=== PATIENT | female | born 1960 | race Caucasian/White ===

== ENCOUNTER 2020-02-27 09:33 | Outpatient (CLI) | payer OTHER, SELFPAY ==
--- NOTE | ~2020-02-27 | CT_ITS ---
EXAMINATION: CT abdomen pelvis wo con DATE: 02/27/2020 10:19 INDICATION: Right ureteral stone. TECHNIQUE: Computed tomography (CT) of the abdomen and pelvis was performed without intravenous contr ast. Automated exposure control and iterative reconstruction technique were employed. The dose-length product was 199.48 mGy-cm. COMPARISON: CT abdomen and pelvis 10/23/2019 FINDINGS: The visualized portions of the lung bases demonstrate mild atelectasis. A calcified right l tara nodule and calcified right hilar and mediastinal lymph nodes are consistent with old granulomatou s disease. No pleural effusion. The heart size is normal. No pericardial effusion. Calcification in t he liver is consistent with old granulomatous disease. There are changes of cholecystectomy. The sple en, pancreas, adrenal glands, and right kidney are normal. There is a 3 mm stone in left kidney. Ther e is diverticulosis of the colon without evidence of diverticulitis. There are no dilated loops of rupert wel. The appendix is normal. There are no pathologically enlarged lymph nodes. There is no free intra peritoneal fluid. There is severe lower lumbar spondylosis. IMPRESSION: 1. 3 mm nonobstructing left kidney stone. Reviewed, dictated and finalized at location A.
--- NOTE | ~2020-02-27 | XR_ITS ---
EXAMINATION: XR abdomen/kub 1V DATE: 02/27/2020 09:59 INDICATION: Right ureteral stone. TECHNIQUE: A supine view of the abdomen on 2 radiographs was obtained. COMPARISON: CT abdomen and pelvis 02/27/2020 FINDINGS: There are no dilated loops of bowel. There is a 3 mm stone in left kidney. There are phlebo liths in the pelvis. Surgical clips in the right upper quadrant are likely from cholecystectomy. IMPRESSION: 1. 3 mm stone in left kidney. Reviewed, dictated and finalized at location A.
== END 2020-02-27 09:34 | disposition home or self-care (01) ==
PROVIDERS: PCP Physician Assistant; Visit Provider Urology
DX: N20.1 Calculus of ureter (principal); N20.0 Calculus of kidney
CPT/HCPCS: 74018; 74176

== ENCOUNTER → 2020-12-05 13:18 | Outpatient (CLI) | payer OTHER, SELFPAY ==
--- NOTE | ~2020-12-05 | XR_ITS ---
XR abdomen/kub 1V DATE: 12/05/2020 13:42 INDICATION: Left sided kidney stone TECHNIQUE: AP projection, 2 views COMPARISON: 02/27/[address] abdomen pelvis FINDINGS: No apparent urinary tract calcification is noted. The psoas shadows are intact. No visceromegaly is detected. Surgical clips overlie the right upper quadrant, due to cholecystectomy. There is a moderately prominent amount of fecal material in the colon but no evidence of bowel obstru ction. The lung bases are clear. Normal heart size. Mild levoscoliosis of the lumbar spine and dextroscoliosis of the thoracic spine. IMPRESSION: No radiographic evidence of urinary tract calcification. Noncontrast CT abdomen pelvis examination would be more sensitive for detection of urinary tract calc ulus Reviewed, dictated and finalized at Location A. Reviewed, dictated and finalized at location A. GRAPH OPERATOR IMPRESSION: No radiographic evidence of urinary tract calcification. Noncontrast CT abdomen pelvis examination would be more sensitive for detection of urinary tract calculus
== END ==
PROVIDERS: PCP Physician Assistant; Visit Provider Urology
DX: N20.0 Calculus of kidney (principal)
CPT/HCPCS: 74018

== ENCOUNTER → 2021-07-28 08:53 | Outpatient (CLI) | payer OTHER, SELFPAY ==
--- NOTE | ~2021-07-28 | XR_ITS ---
EXAMINATION: XR abdomen/kub 1V INDICATION: History of kidney stones TECHNIQUE: Supine views of the abdomen were obtained on 2 radiographs. COMPARISON: 12/05/2020 FINDINGS: No definite urolithiasis is identified. Cholecystectomy clips are noted in the right upper quadrant. The bowel gas pattern is normal. Calcified granulomas noted right lower lobe. Lumbar levocu rvature is noted. IMPRESSION: 1. No urolithiasis identified. Reviewed, dictated and finalized at location A.
== END ==
PROVIDERS: PCP Physician Assistant; Visit Provider Nurse Practitioner Family
DX: Z87.442 Personal history of urinary calculi (principal)
CPT/HCPCS: 74018

== ENCOUNTER → 2021-08-26 13:24 | Outpatient (CLI) | payer OTHER, SELFPAY ==
--- NOTE | ~2021-08-26 | XR_ITS ---
EXAMINATION: XR abdomen/kub 1V INDICATION: History of kidney stones TECHNIQUE: Supine views of the abdomen were obtained on 2 radiographs. COMPARISON: 07/28/2021; CT, 02/27/2020 FINDINGS: No definite urolithiasis is identified. A calcification projecting in the right upper quadr ant is demonstrated to be within the liver on the comparison CT. The bowel gas pattern is normal. The re is levocurvature of the lumbar spine. There are cholecystectomy clips of the right upper quadrant. IMPRESSION: 1. No urolithiasis identified. Reviewed, dictated and finalized at location A.
== END ==
PROVIDERS: Visit Provider Nurse Practitioner Family
DX: Z87.442 Personal history of urinary calculi (principal)
CPT/HCPCS: 74018

== ENCOUNTER → 2022-03-19 13:19 | Outpatient (CLI) | payer OTHER, SELFPAY ==
--- NOTE | ~2022-03-19 | MR_ITS ---
EXAMINATION: MR hand LT wo con DATE: 03/19/2022 14:17 INDICATION: Rheumatoid arthritis presenting with generalized left thumb and index finger pain TECHNIQUE: Magnetic resonance imaging (MRI) of the left hand was performed without intravenous contra st to include the metacarpals and digits. Sequences included axial, sagittal and coronal T1-weighted FSE and T2-weighted FS FSE and additional smaller field of view images centered and aligned along the axis of the thumb with axial, sagittal and coronal T1-weighted FSE, axial and sagittal T2-weighted F S FSE and coronal PD-weighted FS FSE. COMPARISON: Left hand radiographs dated 10/16/2021 FINDINGS: Bone alignment is normal. There is normal bone marrow signal throughout with no reactive edema, fract ure or pathologic marrow replacing process. Joint spaces are normal with no erosions. No joint effusi ons, tenosynovitis or other abnormal fluid collections. The flexor and extensor tendons of the hand a re normal. The collateral ligament complexes at the metacarpophalangeal and interphalangeal joints ar e normal. Intrinsic musculature of the hand demonstrates normal bulk and signal. Although assessment is more limited than on MRI of the wrist, the scapholunate and lunotriquetral ligaments as well as th e triangular fibrocartilage complex appear normal. IMPRESSION: 1. Normal MRI of the left hand. No etiology identified for reported pain at the left thumb and index finger. Reviewed, dictated and finalized at location A.
== END ==
PROVIDERS: PCP Physician Assistant; Visit Provider Nurse Practitioner Family
DX: M79.642 Pain in left hand (principal)
CPT/HCPCS: 73218

== ENCOUNTER → 2022-05-27 13:13 | Outpatient (CLI) | payer OTHER, SELFPAY ==
--- NOTE | ~2022-05-27 | XR_ITS ---
XR ankle LT min 3V 05/27/2022 13:37 INDICATION: Left ankle pain PROCEDURE: 4 views left ankle COMPARISON: 05/16/2018 FINDINGS: Fracture, dislocation or subluxation is not identified. Ankle mortise intact. Talar dome is unremarkable. The soft tissues appear within normal limits. No foreign bodies are identified. IMPRESSION: 1: NO ACUTE BONE OR JOINT ABNORMALITY IDENTIFIED. Reviewed, dictated and finalized at location A.
== END ==
PROVIDERS: PCP Physician Assistant; Visit Provider Family Medicine
DX: M25.572 Pain in left ankle and joints of left foot (principal)
CPT/HCPCS: 73610

== ENCOUNTER 2022-06-08 10:26 | Outpatient (CLI) | payer OTHER, SELFPAY ==
--- NOTE | 2022-06-08 11:30 | NEURO_ITS ---
Impression: # Complains of left hand numbness. # Mild left Carpal Tunnel Syndrome. # No ulnar neuropathy. # Normal needle/EMG exam. Nerve Conduction Studies Anti Sensory Summary Table Stim Site NR Peak (ms) P-T Amp (?V) Site1 Site2 Delta-P (ms) Dist (cm) Jhony (m/s) Left Median Anti Sensory (2-3nd Digit) Wrist 3.2 39.9 Wrist 2-3nd Digit 3.2 14.0 44 Wrist 3.2 81.3 Wrist 2-3nd Digit 3.2 14.0 44 Left Radial Anti Sensory (Base 1st Digit) Wrist 1.8 45.5 Wrist Base 1st Digit 1.8 0.0 Left Ulnar Anti Sensory (5th Digit) Wrist 2.2 97.1 Wrist 5th Digit 2.2 14.0 64 Motor Summary Table Stim Site NR Onset (ms) O-P Amp (mV) Site1 Site2 Delta-0 (ms) Dist (cm) Jhony (m/s) Left Median Motor (Abd Poll Brev) Wrist 4.1 1.7 Elbow Wrist 4.5 26.0 58 Elbow 8.6 2.0 Left Ulnar Motor (Abd Dig Minimi) Wrist 2.7 5.7 A Elbow Wrist 4.6 26.0 57 A Elbow 7.3 3.9 F Wave Studies NR F-Lat (ms) L-R F-Lat (ms) Left Median (Mrkrs) (Abd Poll Brev) 26.12 Left Ulnar (Mrkrs) (Abd Dig Min) 25.64 EMG Side Muscle Nerve Root Ins Act Fibs Amp Dur Recrt Comment Left 1stDorInt Ulnar C8-T1 Nml Nml Nml Nml Nml Left Ext Indicis Radial (Post Int) C7-8 Nml Nml Nml Nml Nml Left Ext Digitorum Radial (Post Int) C7-8 Nml Nml Nml Nml Nml Left BrachioRad Radial C5-6 Nml Nml Nml Nml Nml Left PronatorTeres Median C6-7 Nml Nml Nml Nml Nml Left Abd Poll Brev Median C8-T1 Nml Nml Nml Nml Nml Left ABD Dig Min Ulnar C8-T1 Nml Nml Nml Nml Nml MTDD
== END 2022-06-08 10:27 | disposition home or self-care (01) ==
PROVIDERS: PCP Physician Assistant; Visit Provider Family Medicine
DX: G56.02 Carpal tunnel syndrome, left upper limb (principal)
CPT/HCPCS: 95886; 95909

== ENCOUNTER → 2022-06-14 13:28 | Outpatient (CLI) | payer OTHER, SELFPAY ==
--- NOTE | ~2022-06-14 | XR_ITS ---
XR abdomen/kub 1V 06/14/2022 13:51 Indication: Personal history of urinary stones: Procedure: KUB Comparison: Comparison to multiple prior studies sequentially, with oldest reviewed study dated 02/26. Findings: There is a right renal stone. Bowel gas pattern nonobstructive. There is levoscoliosis of t he lumbar spine. There are cholecystectomy clips. Impression: 1: Right nephrolithiasis. Reviewed, dictated and finalized at location B. Impression: 1: Right nephrolithiasis.
== END ==
PROVIDERS: PCP Family Medicine; Visit Provider Nurse Practitioner Family
DX: N20.0 Calculus of kidney (principal)
CPT/HCPCS: 74018

== ENCOUNTER → 2022-07-06 13:13 | Outpatient (CLI) | payer OTHER, SELFPAY ==
--- NOTE | ~2022-07-06 | CT_ITS ---
EXAMINATION: CT abdomen pelvis wo con DATE: 07/06/2022 13:26 INDICATION: Right flank pain. Bilateral nephrolithiasis. TECHNIQUE: Computed tomography (CT) of the abdomen and pelvis was performed without intravenous contr ast. Automated exposure control and iterative reconstruction technique were employed. The dose-length product was 326.44 mGy-cm. COMPARISON: None FINDINGS: Minimal bibasilar atelectasis. Calcified right lower lobe nodule along with calcified right hilar lym ph nodes and calcified nodules in the right hepatic lobe, all consistent with old granulomatous disea se. Heart size is normal. No pericardial effusion. Cholecystectomy clips at the gallbladder fossa. Li abner, spleen, pancreas and bilateral adrenal glands are normal. A couple 1-2 mm stones at the upper po le of the right kidney and 1 mm stone at the lower pole of the left kidney. No ureteral stones or hyd ronephrosis. Decompressed bladder is normal. The uterus is not identified and has likely been surgica lly resected. Bowels including the appendix are normal. No free intraperitoneal gas or fluid. No path ologically enlarged abdominal or pelvic lymphadenopathy. Mild lumbar levoscoliosis with severe spondy losis at L4-5 and L5-S1. Bone island at the left sacral ala. IMPRESSION: 1. Bilateral nonobstructing nephrolithiasis. No ureteral stones or hydronephrosis. Reviewed, dictated and finalized at location A. IMPRESSION: 1. Bilateral nonobstructing nephrolithiasis. No ureteral stones or hydronephros is.
== END ==
PROVIDERS: PCP Physician Assistant; Visit Provider Nurse Practitioner Family
DX: N20.0 Calculus of kidney (principal)
CPT/HCPCS: 74176

== ENCOUNTER 2022-08-18 01:29 | Day surgery (SDC) | payer OTHER, SELFPAY ==
[2022-08-11 14:38] VITALS: BMI 24.4
--- NOTE | 2022-08-11 14:54 | PC.NURSE ---
Report to the Outpatient Waiting Room, entrance under the green pavilion located off [facility], at time 0900 on date 08/18/22. OR Time: 1000. Time changes happen often and if your time is changed the preop area will call you the afternoon before. - You and your visitor will be asked to self-screen and do not enter if you have any COVID symptoms. - We encourage only one visitor and NO visitors under age 16 are allowed at this time. Your visitor will receive communication by the phone number that is given day of service. - The patient visitor is requested to social distance or may leave the building when not with patient due to restrictions. - A mask is required within the hospital. Patients may have LIGHT BREAKFAST Take the following medications with a SIP of water the morning of surgery: PRESCRIBED Medications to discontinue per physician: N/A Date to take last dose: N/A Please no make-up, nail [place], hairspray, perfume, deodorant, or body powder the day of surgery. No jewelry (including any body piercings) or valuables the day of surgery, leave them at home. Please take a shower or bath the night before, or the morning of, surgery with an antibacterial soap. Wear comfortable, loose fitting clothing. - Jewelry must be removed prior to entering the operating room. Rings and piercings that are not removed may be cut off. - The hospital will not accept responsibility for valuables. - Please leave all valuables, including medications, at home the day of surgery. YOU MAY DRIVE YOURSELF HOME AFTER SURGERY. Follow any additional instructions given to you from your surgeon. If you or anyone in your household have experienced Covid symptoms in the past week, please notify your surgeon or the nurse liaison at the phone number below for possible testing. Telephone instructions given to PT - ALEX HOOVER and asked if any additional questions and then verbalized understanding. Patient advised to call surgeon office or pre surgery nurse liaison [phone] if any additional questions.
--- NOTE | 2022-08-18 07:10 | WPDHPUPDATE1 ---
History and Physical Update Update Date/Time: 08/18/22 07:10 History and Physical has been reviewed, including an updated exam of the patient. There are NO changes in the patient's condition. Risks, benefits, and alternatives have been discussed and questions answered. Patient agrees to proceed with procedure.
[2022-08-18 08:40] VITALS: BP 129/64; PULSE 85; RESP 16; TEMP 36.4; O2SAT 99
[2022-08-18] MEDS: BACITRACIN OINTMENT 15 GM TUBE 1 APPLIC TOPICAL (09:37)
[2022-08-18 09:44] VITALS: BP 122/83; PULSE 84; RESP 16; O2SAT 99
[2022-08-18 09:54] VITALS: BP 122/76; PULSE 85; RESP 16; O2SAT 98
[2022-08-18 10:04] VITALS: BP 118/59; PULSE 82; RESP 16; O2SAT 99
--- NOTE | 2022-08-18 10:31 | W.PM.PROC2 ---
Procedure Note - Detailed Date of Procedure 08/18/22 Pre-op Diagnosis left carpal tunnel syndrome Post-op Diagnosis Same Procedure Performed Left open carpal tunnel release Surgeon Lemuel Juan MD Anesthesia Local Description of Procedure The face left palm for the carpal tunnel release marked on her in the holding area. She was then taken to the operating room she was placed supine on the operating table. The extremity was prepped and draped in usual fashion on left. A time-out was held confirmed. The site was carefully examined again and marked for the actual incision. The site was infiltrated with 2 % lidocaine with epinephrine. Time was allowed for hemostatic effect. No tourniquet was utilized. The incision was made as marked and dissection was carried through the palmar fascia. The transverse the retinaculum was identified incised with a 15 blade. Several bleeding points were coagulated as we proceeded with setting of 15. The ligament was divided distally and then proximally to completely release it. The was no unusual anatomy noted. The skin was closed with interrupted 5 0 nylon sutures and small bandage was applied. She is discharged from the operating room in stable condition. Estimated Blood Loss 2 Tourniquet Time 0 Drains No Packing No Pathology None sent Complications No immediate complications Condition Stable Disposition Same day
== END 2022-08-18 10:36 | disposition home or self-care (01) ==
PROVIDERS: PCP Physician Assistant; Visit Provider Plastic Surgery
PROC: (CPT 64721; principal; 2022-08-18 09:30)
DX: G56.02 Carpal tunnel syndrome, left upper limb (principal)
CPT/HCPCS: 64721; A9270

== ENCOUNTER 2022-10-01 13:22 | Outpatient (CLI) | payer OTHER, SELFPAY ==
--- NOTE | ~2022-10-01 | XR_ITS ---
XR hand RT min 3V DATE: 10/01/2022 13:33 INDICATION: Osteoarthritis TECHNIQUE: 3 views COMPARISON: None FINDINGS: Very small probable degenerative ossicles adjacent to the interphalangeal joint of the firs t digit and distal interphalangeal joints of the third and fourth digits. No fracture or dislocation, periosteal reaction or bone destruction, erosive change or chondrocalcino sis. IMPRESSION: Very small probable degenerative ossicles at the distal interphalangeal joints of first t hrough fourth digits Reviewed, dictated and finalized at location B. OMER ENERGY SPECIALIST IMPRESSION: Very small probable degenerative ossicles at the distal interphalan geal joints of first through fourth digits
--- NOTE | ~2022-10-01 | XR_ITS ---
XR hand LT min 3V DATE: 10/01/2022 13:33 INDICATION: Osteoarthritis TECHNIQUE: 3 views COMPARISON: None FINDINGS: Small likely degenerative ossicle at the medial aspect of this large phalangeal joint of th e third digit. No fracture or dislocation, periosteal reaction or bone destruction, erosive change or chondrocalcino sis. IMPRESSION: Small probable degenerative ossicle at the medial base of the distal interphalangeal join t of the third digit; otherwise unremarkable examination Reviewed, dictated and finalized at location B. ETING DATABASE COORDINATOR IMPRESSION: Small probable degenerative ossicle at the medial base of the dista l interphalangeal joint of the third digit; otherwise unremarkable examination
== END 2022-10-01 13:23 ==
PROVIDERS: PCP Physician Assistant; Visit Provider Plastic Surgery
DX: M19.041 Primary osteoarthritis, right hand (principal); M19.042 Primary osteoarthritis, left hand
CPT/HCPCS: 73130

== ENCOUNTER → 2022-11-11 11:53 | Outpatient (CLI) | payer OTHER, SELFPAY ==
--- NOTE | ~2022-11-11 | XR_ITS ---
EXAMINATION: XR chest 2V DATE: 11/11/2022 12:10 INDICATION: Bronchitis TECHNIQUE: PA and lateral views of the chest are obtained. COMPARISON: 05/06/2004 FINDINGS: The lungs are free of acute opacities. No pleural effusion or pneumothorax. The cardiomedia stinal silhouette is normal. There is mild thoracic spondylosis. Surgical clips in the right upper qu adrant are likely from prior cholecystectomy. IMPRESSION: 1. No acute cardiopulmonary abnormality. Reviewed, dictated and finalized at location L. AL KEEPER
== END ==
PROVIDERS: PCP Physician Assistant; Visit Provider Physician Assistant
DX: J40 Bronchitis, not specified as acute or chronic (principal)
CPT/HCPCS: 71046

== ENCOUNTER → 2023-02-08 09:13 | Outpatient (CLI) | payer OTHER, SELFPAY ==
--- NOTE | ~2023-02-08 | MR_ITS ---
EXAMINATION: MR lumbar spine wo con DATE: 02/08/2023 09:46 INDICATION: Lumbar radiculopathy. TECHNIQUE: Magnetic resonance imaging (MRI) of the lumbar spine was performed without intravenous con trast. Sequences included sagittal T2-weighted FSE, sagittal T2-weighted FS FSE, sagittal T1-weighted FSE, and axial T2-weighted FSE. COMPARISON: Lumbar spine MRI 09/04/2014 FINDINGS: There is 12 degrees levoscoliosis of lumbar spine. Vertebral body heights are normal. There is mildly decreased disc height at L2-L3 and L3-L4 and severely decreased disc at L4-L5 and L5-S1. T he distal spinal cord signal intensity is normal. The conus medullaris is at L1. The following disc l evels are specifically discussed: L1-L2: The disc does not extend beyond the endplate margin. There is mild left facet joint osteoarthr itis. There is no neural foraminal stenosis. There is no central canal stenosis. L2-L3: The disc is bulging and has an annular fissure. There is mild bilateral facet joint osteoarthr itis. There is mild bilateral neural foraminal stenosis. There is mild central canal stenosis. L3-L4: The disc is bulging. There is moderate right and mild left facet joint osteoarthritis. There i s mild bilateral neural foraminal stenosis. There is mild central canal stenosis. L4-L5: The disc is bulging and has an annular fissure. There is mild bilateral facet joint osteoarthr itis. There is mild bilateral neural foraminal stenosis. There is mild central canal stenosis. L5-S1: The disc is bulging and has an annular fissure. There is mild bilateral facet joint osteoarthr itis. There is mild bilateral neural foraminal stenosis. There is no central canal stenosis. IMPRESSION: 1. Severe lumbar spondylosis, stable from 09/04/2014. 2. Lumbar levoscoliosis. Reviewed, dictated and finalized at location A.
== END ==
PROVIDERS: PCP Nurse Practitioner Family; Visit Provider Nurse Practitioner Family
DX: M47.26 Other spondylosis with radiculopathy, lumbar region (principal)
CPT/HCPCS: 72148

== ENCOUNTER → 2023-06-27 13:34 | Outpatient (CLI) | payer OTHER, SELFPAY ==
--- NOTE | ~2023-06-27 | XR_ITS ---
EXAMINATION: XR abdomen/kub 1V DATE: 06/27/2023 13:50 INDICATION: Bilateral kidney stones. TECHNIQUE: A supine view of the abdomen on 2 radiographs was obtained. COMPARISON: Abdomen radiograph 04/14/2022, CT abdomen and pelvis 07/06/2022. FINDINGS: There are no dilated loops of bowel. Surgical clips in the right upper quadrant are likely from cholecystectomy. The kidneys are obscured by bowel. There is a calcification in the inferior james er. There is no visible urolithiasis. IMPRESSION: 1. No visible urolithiasis. Reviewed, dictated and finalized at location E. IMPRESSION: 1. No visible urolithiasis.
== END ==
PROVIDERS: PCP Physician Assistant; Visit Provider Nurse Practitioner Family
DX: N20.0 Calculus of kidney (principal)
CPT/HCPCS: 74018

== ENCOUNTER → 2023-08-10 13:24 | Outpatient (CLI) | payer OTHER, SELFPAY ==
--- NOTE | ~2023-08-10 | XR_ITS ---
Clinical Indication: Bronchitis PA and lateral views of the chest: Comparison: 11/11/2022 Findings: The lungs are clear, without evidence of focal consolidation or pleural effusion. Cardiome diastinal silhouette is within normal limits. Bones and soft tissues are unremarkable. Impression: Normal chest. Reviewed, dictated and finalized at location . Impression: Normal chest.
== END ==
PROVIDERS: PCP Physician Assistant; Visit Provider Physician Assistant
DX: J40 Bronchitis, not specified as acute or chronic (principal)
CPT/HCPCS: 71046

== ENCOUNTER → 2023-08-10 13:27 | Outpatient (CLI) | payer OTHER, SELFPAY ==
--- NOTE | ~2023-08-10 | XR_ITS ---
XR abdomen/kub 1V 08/10/2023 14:00 Indication: Kidney stones Procedure: KUB Comparison: Comparison to multiple prior studies sequentially, with oldest reviewed study dated 07/28. Findings: There are right renal stones. Bowel gas pattern is nonobstructive. Moderate colonic fecal l oading. There is levoscoliosis. There are cholecystectomy clips. Left kidney obscured by bowel conten t. Impression: 1: Right nephrolithiasis. Reviewed, dictated and finalized at location B. Impression: 1: Right nephrolithiasis.
== END ==
PROVIDERS: PCP Physician Assistant; Visit Provider Nurse Practitioner Family
DX: N20.0 Calculus of kidney (principal)
CPT/HCPCS: 74018

== ENCOUNTER 2023-09-08 13:40 | Outpatient (CLI) | payer OTHER, SELFPAY ==
--- NOTE | 2023-09-08 13:54 | ECG_ITS ---
Measurements Intervals [place] Rate: 85 P: 40 UT: 186 QRS: 0 QRSD: 99 T: 5 QT: 347 QTc: 415 Interpretive Statements SINUS RHYTHM CONSIDER INFERIOR INFARCT, AGE INDETERMINATE BASELINE ARTIFACT- I, III, AVR, AVL, AVF ABNORMAL ECG COMPARED TO ECG 09/11/2019 15:50:00 NO SIGNIFICANT CHANGES Electronically Signed On 09-08-2023 14:06:14 GRAPE PICKER by Timur Jackson D.O.
[2023-09-08 14:46] LABS: Anion Gap 10 mmol/L (8-16); Blood Urea Nitrogen 14 mg/dL (7-17); Calcium 9.8 mg/dL (8.4-10.2); Carbon Dioxide 27 mmol/L (22-30); Chloride 103 mmol/L (98-107); Estimated Glomerular Filt Rate > 60; Glucose 89 mg/dL (65-110); Potassium 3.9 mmol/L (3.4-5.0); Sodium 140 mmol/L (137-145)
[2023-09-08 14:47] LABS: Prothrombin Time 13.2 Seconds (11.1-14.7)
== END 2023-09-08 13:41 | disposition home or self-care (01) ==
LOC: ANHSURGERY 13:44
PROVIDERS: Anesthesiology; PCP Physician Assistant; Visit Provider Urology
DX: N20.0 Calculus of kidney (principal); K76.0 Fatty (change of) liver, not elsewhere classified; I10 Essential (primary) hypertension; Z01.818 Encounter for other preprocedural examination; R94.31 Abnormal electrocardiogram [ECG] [EKG]
CPT/HCPCS: 36415; 80048; 85610; 85730; 87086; 93005

== ENCOUNTER 2023-09-16 00:28 | Day surgery (SDC) | payer OTHER, SELFPAY ==
[2023-09-06 15:26] VITALS: BMI 25.4
--- NOTE | 2023-09-06 15:32 | PC.NURSE ---
Report to the Outpatient Waiting Room, entrance under the green pavilion located off [facility], at time 10:00 on date 09/16/23. Planned Procedure Time: 12:00. Time changes happen often and if your time is changed the preop area will call you the afternoon before. - You and your visitor will be asked to self-screen and do not enter if you have any COVID symptoms. - A mask is optional within the hospital at this time. Patients may have clear liquids (water, carbonated beverages, clear teas, apple juice) until 3 hours prior to surgery (9:00) with a maximum of 20 ounces. - No food from midnight until time of surgery Take the following medications with a SIP of water the morning of surgery: NONE DO NOT STOP ANY OF YOUR OTHER PRESCRIPTION MEDICATIONS PRIOR TO SURGERY ?EXCEPT THE FOLLOWING Medications to discontinue per physician: VITAMINS/SUPPLEMENTS Date to take last dose: 09/12/23 PT STOPPING MELOXICAM 09/08/23. Please no make-up, nail new zealander, hairspray, perfume, deodorant, or body powder the day of surgery. No jewelry (including any body piercings) or valuables the day of surgery, leave them at home. Please take a shower or bath the night before, or the morning of, surgery with an antibacterial soap. Wear comfortable, loose fitting clothing. - Jewelry must be removed prior to entering the operating room. Rings and piercings that are not removed may be cut off. - The hospital will not accept responsibility for valuables. - Please leave all valuables, including medications, at home the day of surgery. If you are going home after surgery, a licensed driver retraining instructor must drive you home. - NO public transportation without another adult if you receive anesthesia. - We recommend that an adult stay with you for 24 hours following discharge. - We also recommend that you do not drive, make important decision, drink alcoholic beverages, or take any drugs that were not prescribed by your health care provider for at least 24 hours after your discharge time. Follow any additional instructions given to you from your surgeon. If you or anyone in your household have experienced Covid symptoms in the past week, please notify your surgeon or the nurse liaison at the phone number below for possible testing. Telephone instructions given to PT - ALEX HOOVER and asked if any additional questions and then verbalized understanding. Patient advised to call surgeon office or pre surgery nurse liaison [phone] if any additional questions.
--- NOTE | 2023-09-14 07:31 | PM.HPGS ---
History of Present Illness History of Present Illness Consent: Risks, benefits, and alternatives have been discussed and questions answered. Patient agrees to proceed with procedure. Chief complaint: right kidney stone Narrative: Amy Matias is a 62 year old female with a history of recurrent urolithiasis. Renal ultrasonography and KUB recently showed a 5 mm right renal calculus (imaging done at [facility] in [facility]). She would like to preemptively treat this with ESWL before she becomes symptomatic. She is aware the risk including, but not limited to, hematuria, perinephric hematoma and need for additional procedures. Review of Systems Review of Systems: All systems reviewed & are unremarkable except as noted in HPI and below PMFSH Past Medical History Medical History Degenerative disc disease, lumbar Degenerative joint disease of knee Fibromyalgia GERD (gastroesophageal reflux disease) HTN (hypertension) Hyperlipidemia Irritable bowel syndrome Migraines Osteoarthritis Prediabetes Psoriatic arthritis Rheumatoid arthritis Right ureteral calculus Surgical History Surgical History H/O elbow surgery right elbow 2001 H/O: hysterectomy 1995 History of section 1978, 1983, 1992 History of cholecystectomy 12/2017 History of removal of cyst R foot 2008 Hx of right knee surgery 2005 Hx of sinus surgery 1997 S/P cystoscopy 2014 S/P cystoscopy with ureteral stent placement Right ureteroscopy, laser lithotripsy, stone extraction, retrograde pyelogram, stent insertion 10/23/2019 S/P left knee arthroscopy 1995 S/P right knee arthroscopy 2018 Trigger finger, right ring finger Family History Family History Mother Acute myocardial infarction Cerebrovascular accident Hypertension Father Acute myocardial infarction History of blood clots Diabetes mellitus Hypertension Social History Social History Smoking status: Former smoker Tobacco type: cigarettes Second hand tobacco smoke exposure: Yes Smoking end date: 10/31/06 Additional smoking assessment comments: 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 Alcohol intake: current Alcohol use details: VERY RARE Substance use: never Substance use type: does not use Lack of Transportation: No Lack of Food: Never True Current Housing: I Have Housing Concerned About Future Housing: No Difficulty Paying Gas/Electric Bills: No Difficulty Paying for Meds: No Currently Unemployed: No Education: Trade/Vocational Certificate Difficulty w/ Childcare or Family Care: No Living arrangements: with family Occupation/Education: occupation Gender identity (if verbalized by the patient): Female Sexual Orientation (if Verbalized by the Patient): Straight or Heterosexual Spiritual care concerns: No Agree to blood products: Yes Meds Home Medications and Allergies Home Medications Medication Instructions Recorded Confirmed Type amitriptyline 100 mg tablet 100 mg PO HS 09/10/19 09/06/23 History apremilast 30 mg tablet (Otezla) 30 mg PO BID 09/10/19 09/06/23 History estradiol 1 mg tablet 1 mg PO DAILY 09/10/19 09/06/23 History fenofibrate 160 mg tablet 160 mg PO HS 09/10/19 09/06/23 History rosuvastatin 10 mg tablet (Crestor) 10 mg PO HS 09/10/19 09/06/23 History turmeric root extract 538 mg 538 mg PO DAILY 09/10/19 09/06/23 History capsule ergocalciferol (vitamin D2) 1,250 50,000 unit PO WEEKLY 10/22/19 09/06/23 History mcg (50,000 unit) capsule (Vitamin D2) metoprolol succinate 25 mg 25 mg PO HS 10/22/19 09/06/23 History tablet,extended release 24 hr apple cider vinegar 500 mg tablet 500 mg PO DAILY 08/11/22 09/06/23 History omega 9-nno-hje-fish oil 900 1 cap PO BID 08/11/22 09/06/23 Histor
[2023-09-16] VITALS (9 sets, daily range): BP systolic 123–146; BP diastolic 60–83; PULSE 88–97; RESP 10–20; TEMP 36.5–36.9; O2SAT 99–100
--- NOTE | ~2023-09-16 | XR_ITS ---
EXAMINATION: XR abdomen/kub 1V DATE: 09/16/2023 10:16 INDICATION: Right kidney stone. TECHNIQUE: A supine view of the abdomen on 2 radiographs was obtained. COMPARISON: Abdomen radiographs 08/10/2023, CT abdomen and pelvis 07/06/2022 FINDINGS: There are no dilated loops of bowel. Surgical clips in the right upper quadrant are likely from cholecystectomy. There are phleboliths in the pelvis. There is a 2 mm stone in right kidney. The re is a calcification in the liver inferiorly, consistent with old granulomatous disease. IMPRESSION: 1. 2 mm stone in right kidney. Reviewed, dictated and finalized at location A. L CUT OFF SAW OPERATOR
--- NOTE | 2023-09-16 06:40 | WPDHPUPDATE1 ---
History and Physical Update Update Date/Time: 09/16/23 06:40 History and Physical has been reviewed, including an updated exam of the patient. There are NO changes in the patient's condition. Risks, benefits, and alternatives have been discussed and questions answered. Patient agrees to proceed with procedure.
--- NOTE | 2023-09-16 10:09 | WPDANESEPPF ---
Anes - Initial Pre Proc Eval Procedure: Operation Date: 09/16/23 12:00 Proposed Procedures p Right Extracorporeal Shock Wave Lithotripsy - Jamie Hernandez MD Date/Time: 09/16/23 10:09 Surgeon: Jamie Hernandez MD Pre Op Diagnosis: right kidney stone Patient Data Age: 62 Gender: F Height: 1.52 m Weight: 59 kg Allergies Allergy/AdvReac Type Severity Reaction Status Date / Time adhesive tape AdvReac Mild RASH/ RIPS Verified 09/06/23 15:22 THE SKIN OFF Home Medications Medication Instructions Recorded Confirmed Type amitriptyline 100 mg tablet 100 mg PO HS 09/10/19 09/06/23 History apremilast 30 mg tablet (Otezla) 30 mg PO BID 09/10/19 09/06/23 History estradiol 1 mg tablet 1 mg PO DAILY 09/10/19 09/06/23 History fenofibrate 160 mg tablet 160 mg PO HS 09/10/19 09/06/23 History rosuvastatin 10 mg tablet (Crestor) 10 mg PO HS 09/10/19 09/06/23 History turmeric root extract 538 mg 538 mg PO DAILY 09/10/19 09/06/23 History capsule ergocalciferol (vitamin D2) 1,250 50,000 unit PO WEEKLY 10/22/19 09/06/23 History mcg (50,000 unit) capsule (Vitamin D2) metoprolol succinate 25 mg 25 mg PO HS 10/22/19 09/06/23 History tablet,extended release 24 hr apple cider vinegar 500 mg tablet 500 mg PO DAILY 08/11/22 09/06/23 History omega 6-znu-axv-fish oil 900 1 cap PO BID 08/11/22 09/06/23 History mg-1,400 mg capsule,delayed release cyclobenzaprine 10 mg tablet 10 mg PO QHS 02/28/23 09/06/23 History meloxicam 15 mg tablet 15 mg PO DAILY 02/28/23 09/06/23 History Patient hx anesthesia problems: none Family hx anesthesia problems: none Results Review: All pre-operative results and documents have been reviewed as part of the pre-operative evaluation. [facility] Past Medical History Medical History Degenerative disc disease, lumbar Degenerative joint disease of knee Fibromyalgia GERD (gastroesophageal reflux disease) HTN (hypertension) Hyperlipidemia Irritable bowel syndrome Migraines Osteoarthritis Prediabetes Psoriatic arthritis Rheumatoid arthritis Right ureteral calculus Surgical History Surgical History H/O elbow surgery right elbow 2001 H/O: hysterectomy 1995 History of section 1979, 1984, 1992 History of cholecystectomy 12/2017 History of removal of cyst R foot 2009 Hx of right knee surgery 2006 Hx of sinus surgery 1997 S/P cystoscopy 2014 S/P cystoscopy with ureteral stent placement Right ureteroscopy, laser lithotripsy, stone extraction, retrograde pyelogram, stent insertion 10/23/2019 S/P left knee arthroscopy 1995 S/P right knee arthroscopy 2018 Trigger finger, right ring finger Family History Family History Mother Acute myocardial infarction Cerebrovascular accident Hypertension Father Acute myocardial infarction History of blood clots Diabetes mellitus Hypertension Social History Social History Smoking status: Former smoker Tobacco type: cigarettes Second hand tobacco smoke exposure: Yes Smoking end date: 10/31/06 Additional smoking assessment comments: 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 Alcohol intake: current Alcohol use details: VERY RARE Substance use: never Substance use type: does not use Lack of Transportation: No Lack of Food: Never True Current Housing: I Have Housing Concerned About Future Housing: No Difficulty Paying Gas/Electric Bills: No Difficulty Paying for Meds: No Currently Unemployed: No Education: Trade/Vocational Certificate Difficulty w/ Childcare or Family Care: No Living arrangements: with family Occupation/Education: occupation Gender identity (if verbalized by the patient): Female Sexual Orientation (if Verbalized by the Patient): Straight or Heterosexual
[2023-09-16] MEDS: LACTATED RINGERS 1,000 ML 30 ML IV CONT ×2 (10:30→12:20)
[2023-09-16] MEDS: ceFAZolin 2 GM/D5W 50 ML 2 GM/50 ML BAG IVPB (11:31)
--- NOTE | 2023-09-16 11:59 | W.PM.PROC2 ---
Procedure Note - Detailed Date of Procedure 09/16/23 Pre-op Diagnosis Right kidney stone Post-op Diagnosis Same Procedure Performed Right ESWL Surgeon Jamie Hernandez MD Anesthesia MAC Description of Procedure The patient was brought to the operative suite where she was placed in the supine position on the Dornier lithotripsy table. The focal point of the lithotripter was placed at a 3-4mm right renal calculus. A total of 2500 shocks were delivered at a power setting of 2. There appeared to be good fragmentation of the stone. The patient tolerated the procedure well and was taken to the recovery room in good condition. Drains No Packing No Pathology None sent Complications No immediate complications Condition Stable Disposition PACU
== END 2023-09-16 14:00 | disposition home or self-care (01) ==
PROVIDERS: PCP Family Medicine; Visit Provider Urology
PROC: (CPT 50590; principal; 2023-09-16 12:00)
DX: N20.0 Calculus of kidney (principal); I10 Essential (primary) hypertension; K21.9 Gastro-esophageal reflux disease without esophagitis; E78.5 Hyperlipidemia, unspecified; K58.9 Irritable bowel syndrome, unspecified; R73.03 Prediabetes; Z96.0 Presence of urogenital implants; Z87.891 Personal history of nicotine dependence; Z82.49 Family history of ischemic heart disease and other diseases of the circulatory system
CPT/HCPCS: 50590; 36415; 74018; 80048; 85610; 85730; 87086; 93005; J0690; J1100; J2250; J2405; J2704; J3010; J7120

== ENCOUNTER → 2023-09-26 14:14 | Outpatient (CLI) | payer OTHER, SELFPAY ==
--- NOTE | ~2023-09-26 | XR_ITS ---
EXAMINATION: XR abdomen/kub 1V DATE: 09/26/2023 14:32 INDICATION: Nephrolithiasis TECHNIQUE: A supine view of the abdomen on 2 radiographs was obtained. COMPARISON: 09/16/[address] dated 07/06/2022 FINDINGS: Again seen is a 4 mm calcified granuloma along the caudal margin of the right hepatic lobe. No eviden t nephrolithiasis however evaluation of the region of the mid right kidney at the site of the previou sly seen stone is more limited due to mottled pattern of stool in the superimposed proximal transvers e colon. Cholecystectomy clips in right upper quadrant. Calcified right infrahilar lymph node consist ent with old granulomatous disease. Visualized lower lungs are otherwise clear. Heart size is normal. Normal bowel gas pattern. Mild lumbar levoscoliosis with moderate spondylosis. IMPRESSION: 1. No evident nephrolithiasis with the previously seen 2 mm stone at the mid right kidney no longer v isualized and evaluation is however more limited due to superimposed stool in the transverse colon. Reviewed, dictated and finalized at location A. CTOR FUNDRAISING IMPRESSION: 1. No evident nephrolithiasis with the previously seen 2 mm stone at the mid ri ght kidney no longer visualized and evaluation is however more limited due to s uperimposed stool in the transverse colon.
== END ==
PROVIDERS: PCP Urology; Visit Provider Urology
DX: N20.0 Calculus of kidney (principal)
CPT/HCPCS: 74018

== ENCOUNTER 2023-10-12 13:10 | Outpatient (CLI) | payer OTHER, SELFPAY ==
--- NOTE | ~2023-10-12 | MM_ITS ---
EXAMINATION: MM screening peter BI w norma HISTORY: Screening TECHNIQUE: Craniocaudal and mediolateral oblique 3-D tomosynthesis images were obtained and synthetic 2-D images were generated. CAD analysis was submitted and interpreted. COMPARISON: Comparison to multiple prior studies sequentially, with oldest reviewed study dated 10/01. BREAST PARENCHYMAL COMPOSITION: FINDINGS: There is new focal subareolar asymmetry of the right breast. The left breast is stable with out evidence for malignancy. IMPRESSION: 1. New focal subareolar asymmetry of the right breast. 2. Additional mammographic views and possible breast ultrasound are recommended. BI-RADS Category 0: Incomplete: Needs additional imaging evaluation. Reviewed, dictated and finalized at location A. H OPERATOR IMPRESSION: 1. New focal subareolar asymmetry of the right breast. 2. Additional mammographic views and possible breast ultrasound are recommended . BI-RADS Category 0: Incomplete: Needs additional imaging evaluation.
== END 2023-10-12 13:11 | disposition home or self-care (01) ==
LOC: ANHIMG 13:14
PROVIDERS: PCP Urology; Visit Provider Physician Assistant
DX: Z12.31 Encounter for screening mammogram for malignant neoplasm of breast (principal); R92.8 Other abnormal and inconclusive findings on diagnostic imaging of breast
CPT/HCPCS: 77063; 77067

== ENCOUNTER 2023-10-20 11:16 | Outpatient (CLI) | payer OTHER, SELFPAY ==
--- NOTE | ~2023-10-20 | MMUS_ITS ---
EXAMINATION: MM diagnostic peter RT w norma, US breast RT limited HISTORY: New focal right subareolar asymmetry reported on 10/12/2023 screening mammogram TECHNIQUE: Additional 3-D tomosynthesis images of the right breast were performed and synthetic 2-D i mages were generated. CAD analysis was submitted and interpreted. High resolution right subareolar br east ultrasound was performed. COMPARISON: 10/12/2023 bilateral screening mammogram BREAST PARENCHYMAL COMPOSITION: The breasts are heterogeneously dense, which may obscure small masses . FINDINGS: MAMMOGRAPHIC FINDINGS: No suspicious mass or architectural distortion, malignant calcification, skin thickening or retractio n is detected. ULTRASOUND: No suspicious mass or shadowing, cyst or other significant abnormality is detected in the subareolar area. IMPRESSION: 1. No mammographic or sonographic evidence of malignancy 2. Routine annual mammographic screening is recommended BI-RADS Category 1: Negative Reviewed, dictated and finalized at location A. S ASSISTANT DISPLAYS IMPRESSION: 1. No mammographic or sonographic evidence of malignancy 2. Routine annual mammographic screening is recommended BI-RADS Category 1: Negative
== END 2023-10-20 11:17 | disposition home or self-care (01) ==
PROVIDERS: PCP Urology; Visit Provider Physician Assistant
DX: N63.10 Unspecified lump in the right breast, unspecified quadrant (principal); R92.8 Other abnormal and inconclusive findings on diagnostic imaging of breast
CPT/HCPCS: 76642; 77061; 77065; G0279

== ENCOUNTER 2023-12-05 07:21 | Outpatient (CLI) | payer OTHER, SELFPAY ==
--- NOTE | ~2023-12-05 | NM_ITS ---
EXAMINATION: NM camron stress w perfusion DATE: 12/05/2023 14:42 INDICATION: Other forms of dyspnea TECHNIQUE: Rest images were obtained following intravenous administration of 11 mCi Tc99m tetrofosmin (Myoview). The patient was infused intravenously with Lexiscan (Regadenoson). Then, 34 mCi Tc99m tet rofosmin (Myoview) was administered intravenously, and stress images were obtained. Data was reconstr ucted into short axis and horizontal and vertical long axis SPECT images. Gated SPECT images were als o obtained. COMPARISON: None. FINDINGS: There is no definite reversible or fixed perfusion abnormality to suggest ischemia or infar ction. There is normal left ventricular chamber size, wall motion and ejection fraction. Left ventr icular ejection fraction measures >70%. IMPRESSION: 1. Normal myocardial perfusion at rest and during stress. 2. Left ventricular ejection fraction measuring >70%. Reviewed, dictated and finalized at location A. R VEHICLE ASSEMBLER
--- NOTE | 2023-12-05 07:27 | ECHO_ITS ---
Patient Info Name: Amy Matias Age: 63 years : 1960 Gender: Female Ht: 60 in Wt: 123 lbs BSA: 1.55 m2 HR: 85 bpm BP: 136 / 83 mmHg Technical Quality: Fair Exam Date: 12/05/2023 7:52 AM Exam Location: Echo Lab Patient Status: Outpatient Admit Date: 12/05/2023 Staff Ordering Physician: Timur Jackson DO Attending Provider: Timur Jackson DO Referring Physician: Manuel MESSINA; Exam Type: CA echo doppler color flow Study Info Indications R06.00 - Dyspnea, unspecified Complete two-dimensional, color flow and Doppler transthoracic echocardiogram is performed. Summary 1. Complete two-dimensional, color flow and Doppler transthoracic echocardiogram is performed. 2. Left ventricular chamber dimension is normal. 3. Ventricular septum is sigmoid shaped. No LVOT obstruction. 4. Left ventricular systolic function is normal, estimated at 60-65%. 5. The left ventricular diastolic function is grade I diastolic dysfunction. 6. E/e' 8 is minimally elevated. 7. There is trace mitral valve regurgitation. 8. There is trace tricuspid valve regurgitation. 9. No pulmonary hypertension, estimated pulmonary arterial systolic pressure is 20 mmHg. 10. There is trace pulmonic regurgitation. Left Ventricle Ventricular septum is sigmoid shaped. No LVOT obstruction. E/e' 8 is minimally elevated. Left ventricular chamber dimension is normal. Left ventricular systolic function is normal, estimated at 60-65%. The left ventricular diastolic function is grade I diastolic dysfunction. Right Ventricle Right ventricular chamber dimension is normal. Right ventricular systolic function is normal. Left Atria Left atrial chamber dimension is normal. Right Atria Right atrial chamber dimension is normal. Aortic Valve The aortic valve is trileaflet. There is no aortic valve stenosis. There is no aortic valve regurgitation. Pulmonic Valve There is trace pulmonic regurgitation. Mitral Valve There is no mitral valve stenosis. There is trace mitral valve regurgitation. Tricuspid Valve There is trace tricuspid valve regurgitation. No pulmonary hypertension, estimated pulmonary arterial systolic pressure is 20 mmHg. Pericardium/Pleural There is no pericardial effusion. Inferior Vena Cava Normal inferior vena cava with >50% collapse upon inspiration consistent with normal right atrial pressure, 5 mmHg. Aorta The aortic root size at the sinus of Valsalva is normal. Left Ventricular Outflow Tract Name Value Normal LVOT 2D LVOT Diameter 2.0 cm LVOT Doppler LVOT Peak Gradient 2 mmHg LVOT Mean Gradient 1 mmHg LVOT VTI 18 cm LVOT VTI/AV VTI Ratio 0.7 LVOT Stroke Volume 55 ml LVOT CO 4.0 l/min LVOT CI 2.6 l/min/m2 Pulmonic Valve Name Value Normal PV Doppler PV Pe
--- NOTE | 2023-12-05 07:30 | EST_ITS ---
Patient Info Name: Amy Matias Age: 63 years : 1960 Gender: Female Ht: 60 in Wt: 123 lbs BSA: 1.55 m2 HR: 89 bpm BP: 138 / 86 mmHg Exam Date: 12/05/2023 9:34 AM Exam Location: Echo Lab Patient Status: Outpatient Admit Date: 12/05/2023 Staff Ordering Physician: Timur Jackson DO Attending Provider: Timur Jackson DO Exercise Technologist: Daniela Baptiste RDCS Exercise Physician: Timur Jackson DO Exam Type: CA stress camron w NM Study Info A regadenoson stress test was performed. Summary 1. 1. Negative lexiscan stress test for ischemic ST changes. 2. 2. Stable hemodynamics throughout the test. 3. 3. Nuclear scan to follow and will be reported separately. Please correlate with it. 4. 4. Patient informed of the above results. Protocol: Lexiscan Stress ECG Details Stage: REST Duration (min): 1 min : 11 sec HR (bpm): 89 SBP (mmHg): 138 DBP (mmHg): 86 Stage: REST Duration (min): 4 min : 53 sec HR (bpm): 94 SBP (mmHg): 138 DBP (mmHg): 86 Stage: STAGE 1 Duration (min): 1 min : 0 sec HR (bpm): 108 SBP (mmHg): 144 DBP (mmHg): 80 Stage: RECOVERY Duration (min): 1 min : 0 sec HR (bpm): 116 SBP (mmHg): 144 DBP (mmHg): 80 Stage: RECOVERY Duration (min): 2 min : 0 sec HR (bpm): 114 SBP (mmHg): 144 DBP (mmHg): 80 Stage: RECOVERY Duration (min): 3 min : 0 sec HR (bpm): 105 SBP (mmHg): 144 DBP (mmHg): 77 Stage: RECOVERY Duration (min): 4 min : 0 sec HR (bpm): 115 SBP (mmHg): 144 DBP (mmHg): 77 Stage: RECOVERY Duration (min): 5 min : 0 sec HR (bpm): 107 SBP (mmHg): 144 DBP (mmHg): 80 Stage: RECOVERY Duration (min): 5 min : 32 sec HR (bpm): 104 SBP (mmHg): 154 DBP (mmHg): 79 Rest HR: 94 bpm Peak HR: 117 bpm Rest Sys BP: 138 mmHg Peak Sys BP: 154 mmHg Max Pred HR: 156 bpm % Max Pred HR: 75 % Target HR: 133 bpm Max RPP: 18,018 bpm*mmHg Termination Reason: Completed protocol Cardiac Symptoms: Shortness of breath Total Time: 1 min : 0 sec Rest Ferrera BP: 86 mmHg Peak Ferrera BP: 79 mmHg Total Dose: 0.4 mg Resting ECG Sinus rhythm. Stress ECG No ST changes. Arrhythmias None. Report Signatures
== END 2023-12-05 07:22 | disposition home or self-care (01) ==
PROVIDERS: PCP Family Medicine; Visit Provider Internal Medicine Cardiovascular Disease
DX: R06.09 Other forms of dyspnea (principal)
CPT/HCPCS: 78452; 93017; 93306; A9502; J2785

== ENCOUNTER 2024-07-12 14:03 | Outpatient (CLI) | payer OTHER, SELFPAY ==
--- NOTE | ~2024-07-12 | XR_ITS ---
XR wrist RT w scaphoid Ordering provider: Ion Balderas MD History: . S69.91XA - Unspecified injury of right wrist, hand and fi... . Comparison: None. FINDINGS: BONES: No acute fracture or dislocation. No definite scaphoid fracture. JOINT SPACES: Normal. SOFT TISSUES: Normal. IMPRESSION: No acute osseous abnormality right wrist. Reviewed, dictated and finalized at location A.
== END 2024-07-12 14:04 | disposition home or self-care (01) ==
LOC: MICIMG 14:05
PROVIDERS: PCP Family Medicine; Visit Provider Family Medicine
DX: S69.91XA Unspecified injury of right wrist, hand and finger(s), initial encounter (principal); X58.XXXA Exposure to other specified factors, initial encounter
CPT/HCPCS: 73110

== ENCOUNTER 2024-08-13 13:14 | Outpatient (CLI) | payer OTHER, SELFPAY ==
--- NOTE | ~2024-08-13 | XR_ITS ---
Clinical Indication: Other abnormality of breathing PA and lateral views of the chest: Comparison: 08/10/2023 Findings: The lungs are clear, without evidence of focal consolidation or pleural effusion. Cardiome diastinal silhouette is within normal limits. Bones and soft tissues are unremarkable. Impression: Normal chest. Reviewed, dictated and finalized at location . Impression: Normal chest.
== END 2024-08-13 13:15 | disposition home or self-care (01) ==
LOC: MICIMG 13:15
PROVIDERS: PCP Family Medicine; Visit Provider Family Medicine
DX: R06.89 Other abnormalities of breathing (principal)
CPT/HCPCS: 71046

== ENCOUNTER 2024-08-14 13:23 | Outpatient (CLI) | payer OTHER, SELFPAY ==
--- NOTE | ~2024-08-14 | XR_ITS ---
XR abdomen/kub 1V Ordering provider: Ion Balderas MD History: . rt flank pain for 2-3 weeks hx of kidney stones . Comparison: September 26, 2023 FINDINGS: BOWEL: Nonobstructive bowel gas pattern. ORGANOMEGALY: None. SIGNIFICANT PATHOLOGIC CALCIFICATIONS: Calcification in the right upper quadrant unchanged from previ ous examination most likely outside the kidney. OTHER: No free air is seen under the diaphragm. IMPRESSION: NO ACUTE ABDOMINAL FINDINGS. Reviewed, dictated and finalized at location A.
== END 2024-08-14 13:24 | disposition home or self-care (01) ==
LOC: MICIMG 13:25
PROVIDERS: PCP Family Medicine; Visit Provider Family Medicine
DX: R10.9 Unspecified abdominal pain (principal)
CPT/HCPCS: 74018

== ENCOUNTER 2024-09-17 13:28 | Outpatient (CLI) | payer OTHER, SELFPAY ==
--- NOTE | ~2024-09-17 | XR_ITS ---
EXAMINATION: XR hand BI arthritis min 3V DATE: 09/17/2024 13:56 INDICATION: Polyarthralgia. TECHNIQUE: 3 views of right hand and 3 views of left hand on a total of 5 radiographs were obtained. COMPARISON: Right wrist radiographs 07/12/2024, left hand radiograph 04/03/2024 FINDINGS: RIGHT HAND: Alignment is normal. No fracture. There is mild osteoarthritis of first interphalangeal j oint and second, third, and fifth distal interphalangeal joints. There are punctate calcifications of the ulnar aspects of the third and fourth distal interphalangeal joints. LEFT HAND: Alignment is normal. No fracture. There is mild osteoarthritis of fourth distal interphala ngeal joint. There are punctate calcifications at the ulnar aspects of the second and third distal in terphalangeal joints. IMPRESSION: 1. Mild polyarticular osteoarthritis. No evidence of inflammatory arthropathy. Reviewed, dictated and finalized at location A. OROLOGIST IN CHARGE
--- NOTE | ~2024-09-17 | XR_ITS ---
XR chest 2V Ordering provider: Jessica Bentley, [place] History: 63 years Female with . Polyarthralgia . Comparison: None. FINDINGS: MEDIASTINUM: The cardiac silhouette is not enlarged. LUNGS: No infiltrates, effusions or pneumothorax. OTHER: No free air under the diaphragm. IMPRESSION: No acute cardiopulmonary pathology. Reviewed, dictated and finalized at location A. SCALDER
--- NOTE | ~2024-09-17 | XR_ITS ---
EXAMINATION: XR sacroiliac joints min 3V DATE: 09/17/2024 13:56 INDICATION: Polyarthralgia. TECHNIQUE: 3 views of the sacroiliac joints on 4 radiographs were obtained. COMPARISON: CT abdomen and pelvis 07/06/2022 FINDINGS: There is lumbar levocurvature and severe spondylosis. No fracture. There is mild osteoarthr itis of the sacroiliac joints. IMPRESSION: 1. Mild osteoarthritis of the sacroiliac joints. No evidence of inflammatory arthropathy. Reviewed, dictated and finalized at location A. ACCOUNT MANAGER IMPRESSION: 1. Mild osteoarthritis of the sacroiliac joints. No evidence of inflammatory ar thropathy.
== END 2024-09-17 13:29 | disposition home or self-care (01) ==
PROVIDERS: PCP Family Medicine; Visit Provider Physician Assistant
DX: Z11.1 Encounter for screening for respiratory tuberculosis (principal); M53.3 Sacrococcygeal disorders, not elsewhere classified; M19.041 Primary osteoarthritis, right hand; M19.042 Primary osteoarthritis, left hand
CPT/HCPCS: 71046; 72202; 73130

== ENCOUNTER 2024-09-21 15:07 | Outpatient (CLI) | payer OTHER, SELFPAY ==
--- NOTE | ~2024-09-21 | XR_ITS ---
EXAMINATION: XR abdomen/kub 1V DATE: 09/21/2024 15:23 INDICATION: Bilateral kidney stones. TECHNIQUE: A supine view of the abdomen on 2 radiographs was obtained. COMPARISON: CT abdomen pelvis 07/06/22 FINDINGS: There are no dilated loops of bowel. The kidneys are obscured by bowel. Surgical clips in t he right upper quadrant are likely from cholecystectomy. IMPRESSION: 1. No visible urolithiasis. Reviewed, dictated and finalized at location A. UM METHYLATE OPERATOR IMPRESSION: 1. No visible urolithiasis.
== END 2024-09-21 15:08 | disposition home or self-care (01) ==
PROVIDERS: PCP Family Medicine; Visit Provider Urology
DX: N20.0 Calculus of kidney (principal)
CPT/HCPCS: 74018

== ENCOUNTER 2024-10-15 13:08 | Outpatient (CLI) | payer OTHER, SELFPAY ==
--- NOTE | ~2024-10-15 | MM_ITS ---
EXAMINATION: MM screening peter BI w norma HISTORY: Screening TECHNIQUE: Craniocaudal and mediolateral oblique 3-D tomosynthesis images were obtained and synthetic 2-D images were generated. CAD analysis was submitted and interpreted. COMPARISON: Comparison to multiple prior studies sequentially, with oldest reviewed study dated 10/01. BREAST PARENCHYMAL COMPOSITION: Dense: The breasts are heterogeneously dense, which may obscure small masses FINDINGS: There is no evidence of suspicious mass, calcification, or architectural distortion to sugg est malignancy in either breast. There has been no suspicious interval change. IMPRESSION: 1. No mammographic evidence of malignancy. 2. Recommend routine screening mammography in one year. BI-RADS Category 1: Negative Reviewed, dictated and finalized at location B. ING FURNACE FEEDER
== END 2024-10-15 13:09 | disposition home or self-care (01) ==
LOC: ANHIMG 13:11
PROVIDERS: PCP Family Medicine; Visit Provider Family Medicine
DX: Z12.31 Encounter for screening mammogram for malignant neoplasm of breast (principal)
CPT/HCPCS: 77063; 77067

== ENCOUNTER 2025-03-05 13:54 | Outpatient (CLI) | payer MEDICARE, SELFPAY ==
--- NOTE | ~2025-03-05 | XR_ITS ---
XR abdomen/kub 1V 03/05/2025 14:16 Indication: Abdomen pain Procedure: KUB Comparison: Comparison to multiple prior studies sequentially, with oldest reviewed study dated 03/2022. Findings: There is a possible right renal stone. Bowel gas pattern nonobstructive. There are cholecys tectomy clips. There is levoscoliosis of the lumbar spine with mild lumbar spondylosis. Impression: 1: Possible right nephrolithiasis. Consider correlation with CT. Reviewed, dictated and finalized at location A. Impression: 1: Possible right nephrolithiasis. Consider correlation with CT.
--- NOTE | ~2025-03-05 | XR_ITS ---
XR hip LT min 2V Ordering provider: Vivian Cano PA-C History: . M25.552 - Pain in left hip . Comparison: None. FINDINGS: BONES: No acute fracture or dislocation. HIP JOINT SPACES: Narrowing of the joint space is seen which may indicate mild to moderate osteoarthr itic changes. SACROILIAC JOINT SPACES/LUMBAR SPINE: The left sacroiliac joint spaces are normal. Mild degenerative changes of the visualized lower lumbar spine. PUBIC SYMPHYSIS: Normal. SOFT TISSUES: Normal. IMPRESSION: No acute osseous abnormality pelvis and left hip. Mild to moderate left hip osteoarthritic changes. Reviewed, dictated and finalized at location A.
== END 2025-03-05 13:55 | disposition home or self-care (01) ==
LOC: MICIMG 13:56
PROVIDERS: PCP Family Medicine
DX: R10.9 Unspecified abdominal pain (principal); M85.80 Other specified disorders of bone density and structure, unspecified site; Z91.81 History of falling; R39.9 Unspecified symptoms and signs involving the genitourinary system; Z87.442 Personal history of urinary calculi; M16.12 Unilateral primary osteoarthritis, left hip
CPT/HCPCS: 73502; 74018

== ENCOUNTER 2025-03-07 11:06 | Outpatient (CLI) | payer MEDICARE, SELFPAY ==
--- NOTE | ~2025-03-07 | XR_ITS ---
XR abdomen/kub 1V Ordering provider: Jamie Hernandez MD History: . Bilateral kidney stones . Comparison: None. FINDINGS: BOWEL: Nonobstructive bowel gas pattern. ORGANOMEGALY: None. SIGNIFICANT PATHOLOGIC CALCIFICATIONS: Calcific shadow seen in the right upper quadrant which may be a gallbladder stone, kidney stone or in the fecal material. If clinically warranted ultrasound right upper quadrant is advised. Tiny stone in the right kidney lower pole is noted OTHER: No free air is seen under the diaphragm. Levoscoliosis. IMPRESSION: NO ACUTE ABDOMINAL FINDINGS. Highly suggestive right renal stones. Noncontrast CT is better for evaluation. Reviewed, dictated and finalized at location A.
== END 2025-03-07 11:07 | disposition home or self-care (01) ==
PROVIDERS: PCP Family Medicine; Visit Provider Urology
DX: N20.0 Calculus of kidney (principal)
CPT/HCPCS: 74018

== ENCOUNTER 2025-03-18 14:37 | Outpatient (CLI) | payer MEDICARE, SELFPAY ==
--- NOTE | ~2025-03-18 | XR_ITS ---
XR abdomen/kub 1V Ordering provider: Jamie Hernandez MD History: . Bilateral kidney stones . Comparison: None. FINDINGS: BOWEL: Nonobstructive bowel gas pattern. ORGANOMEGALY: None. SIGNIFICANT PATHOLOGIC CALCIFICATIONS: Calcification seen in the right upper quadrant which may be re nal stone. OTHER: No free air is seen under the diaphragm. IMPRESSION: NO ACUTE ABDOMINAL FINDINGS. Calcification in the right upper quadrant which may be renal stone. Noncontrast CT is better for eval uation. Reviewed, dictated and finalized at location A. IMPRESSION: NO ACUTE ABDOMINAL FINDINGS. Calcification in the right upper quadrant which may be renal stone. Noncontrast CT is better for evaluation.
--- NOTE | ~2025-03-18 | CT_ITS ---
Non-contrast CT scan of the Abdomen and Pelvis Clinical indication: Kidney stones Technique: 2.5 mm axial scans were obtained through the abdomen and pelvis without intravenous or or al contrast. Dose reduction technique was used on this scan by utilizing automated exposure control a nd iterative reconstruction technique. The dose-length product (DLP) was 196.49 mGy-cm. COMPARISON: 07/06/2022 Findings: Images through the lung bases reveal no abnormalities. Punctate nonobstructing left renal stone present. No right renal stone present. No ureteral stone or hydronephrosis on either side. The liver, spleen, pancreas, and adrenals appear normal. Cholecystectomy clips are present. There is no aortic aneurysm. There is no evidence of bowel obstruction. Normal appendix. Images through the pelvis were performed. There is no evidence of ascites or lymphadenopathy. Urinary bladder unremarkable. No pelvic mass seen. No ascites. Impression: Punctate nonobstructing left renal stone. Reviewed, dictated and finalized at [facility]. Impression: Punctate nonobstructing left renal stone.
--- OUTSIDE RECORDS SUMMARY | 2025-03-18 14:44 | XMS_ITS | Referral Summary ---
Author Organization [facility] [address] [facility] Address [address] [place] [id number] Care Team Providers Care Transfer Machine Operator Name Role Phone Ion Balderas MD Primary Care Provider [phone] Marcin Norton MD Unavailable [phone] Encounters Date Type Department Care Team Description 01/02/[address] [address] Jose Sears [employer] Approved 12/25/[address] [phone] Jose Sears Pts portion of [employer] Application 12/20/2024 Orders Only [address] [phone] Jessica Bentley PA 12/20/[address] [phone] Jessica Bentley PA 12/20/2024 11:15 AM TREE PULLER Office Visit [address] [phone] Jessica Bentley PA Psoriatic arthritis (HCC) (Primary Dx); Psoriasis from Last 3 Months Allergies Active Allergy Reactions Criticality Noted Date Comments Adhesive Itching,Rash Medium 10/20/2019 Secukinumab Hives Medium 09/14/2024 Injection site reaction Ixekizumab Hives Medium 09/14/2024 Injection site reaction Medications meloxicam (MOBIC) 15 mg tablet Take 1 tablet (15 mg total) by mouth daily Active cyclobenzaprine (FLEXERIL) 10 mg tablet 4 Active dicyclomine (BENTYL) 10 mg capsule TAKE 1 CAPSULE BY MOUTH THREE TIMES A DAY NEEDED FOR ABDOMINAL DISCOMFORT 4 Active ergocalciferol (VITAMIN D) 50,000 unit capsule Take 1 capsule (50,000 Units total) by mouth once a week Active fenofibrate (TRIGLIDE) 160 mg tablet Take 1 tablet (160 mg total) by mouth daily Active metoprolol XL (TOPROL-XL) 25 mg extended release tablet Take 1 tablet (25 mg total) by mouth nightly Active oxyBUTYnin (DITROPAN) 5 mg tablet Take 1 tablet (5 mg total) by mouth 2 (two) times a day 4 Active rosuvastatin (CRESTOR) 10 mg tablet Take 1 tablet (10 mg total) by mouth daily Active SUMAtriptan (IMITREX) 50 mg tablet Take 1 tablet (50 mg total) by mouth 2 (two) times a day as needed Active turmeric root extract 500 mg capsule Take 1 capsule by mouth daily Active famotidine (PEPCID) 20 mg tablet Take 1 tablet (20 mg total) by mouth daily Active omega-3 fatty acids-fish oil 300-1,000 mg capsule Take 1 capsule (1 g total) by mouth daily Active evening primrose oil 500 mg capsule Take 2 capsules (1,000 mg total) by mouth Active ondansetron (ZOFRAN) 4 mg tablet Take 1 tablet (4 mg total) by mouth every 8 (eight) hours as needed for nausea or vomiting Active Otezla 30 mg tablet Take 1 tablet (30 mg total) by mouth 2 (two) times a day 180 tablet 3 5 Active Active Problems Problem Noted Date Diagnosed Date Psoriasis 12/20/2024 Assessment & Plan (12/20/2024 12:25 PM TREE PULLER): Follows with [facility]. Currently on Otezla 30mg BID with benefit of skin. Psoriatic arthritis 09/14/2024 Overview (12/20/2024): Labs 09/14/24: RF 18, CCP <16, MVC <20, CMP nl, CBC nl, ESR 2, CRP <0.3mg/dL, hepatitis panel negative, TB quant negative XR 09/17/24: CXR: unremarkable R hand: mild OA at 1st IP joint, 2nd/3rd/5th DIP joint. Punctate calcifications of the ulnar aspects of the 3rd/4th DIP joints. L hand: mild OA 4th DIP joint. Punctate calcifications at ulnar aspects of 2nd/3rd DIP joints. SI joints: mild OA SI joints. Lumbar levocurvature and severe spondylosis. US left hand/wrist (10/09/24): Dorsal wrist: Grade 1 power doppler. Radial scaphoid joint: Grade 1 power doppler. No significant joint effusions, tendinopathy, synovial thickening, or erosive changes appreciated on US examination. Assessment & Plan (12/20/2024 12:28 PM TREE PULLER): 64-year-old female with PMHx of HTN, HLD, osteoporosis, fibromyalgia, diverticulitis, kidney stones, migraines, thyroid disease, OA, RA, PsO, and PsA here to establish care for RA/PsA. Previously tried/failed MTX, HCQ, Cosentyx, Taltz, and Skyrizi. Currently on Otezla 30mg BID and meloxicam 15mg daily with good relief of joint complaints. She notes when reducing Otezla to 30mg once daily that she has increased pain complaints suggesting that Otezla remains effective. There are degenerative changes noted in the PIP and DIP joints as well. Rheumatologic evaluation revealed low positive RF (18), negative CCP, and normal ESR/CRP. XR showed mild OA changes mainly in the bilateral DIP joints, mild OA in the bilateral SI joints, and severe lower lumbar spondylosis. CXR was unremarkable. US of the left hand/wrist did not show any significant inflammatory findings. Despite low positive RF, symptoms and exam remain consistent with PsA at this time. Low +RF could suggest overlapping RA however with good response to Otezla this suggests joint complaints are most likely due to PsA at this time. Continue Otezla 30mg BID. Will try for patient assistance due to burden of medical costs. Provided samples today. Continue meloxicam 15mg daily for OA. Follow up in 3-4 months. Sooner if needed. Seen with Dr. Norton. Assessment & Plan (09/14/2024 12:28 PM TREE PULLER): 63-year-old female with PMHx of HTN, HLD, osteoporosis, fibromyalgia, diverticulitis, kidney stones, migraines, thyroid disease, OA, RA, PsO, and PsA here to establish care for RA/PsA. Previously tried/failed MTX, HCQ, Cosentyx, Taltz, and Skyrizi. Currently on Otezla and meloxicam 15mg daily without significant relief of joint pain, swelling, or stiffness. Synovitis with tenderness is noted in bilateral MCP and PIP joints. There are degenerative changes noted in the PIP and DIP joints as well. Symptoms and exam are suspicious for RA vs PsA. Will order appropriate serologies, radiographs, and a left hand/wrist US to further evaluate. Continue current medications at this time. Depending on results, consider changing tx to a TNFi next visit. Follow up in 2 weeks. Sooner if needed. Seen with Dr. Norton. Social History Tobacco Use Types Packs/Day Years Used Date Smoking Tobacco: Never Tobacco Cessation:Counseling Given: Not Answered Comments Unknown Sex and Gender Information Value Date Recorded Sex Assigned at Not on file Legal Sex Female 4:24 AM TREE PULLER Gender Identity Not on file Sexual Orientation Not on file Last Filed Vital Signs Vital Sign Reading Time Taken Comments Blood Pressure 122/74 12/20/2024 11:12 AM TREE PULLER Pulse 80 12/20/2024 11:12 AM TREE PULLER Temperature - - Respiratory Rate - - Oxygen Saturation 98% 12/20/2024 11:12 AM TREE PULLER Inhaled Oxygen Concentration - - Weight 48.7 kg (107 lb 6.4 oz) 12/20/2024 11:12 AM TREE PULLER Height 152.4 cm (5') 12/20/2024 11:12 AM TREE PULLER Body Mass Index 20.98 12/20/2024 11:12 AM TREE PULLER Plan of Treatment Not on file Procedures Procedure Name Priority Date/Time Associated Diagnosis Comments HEPATITIS PANEL, ACUTE Routine 09/14/2024 10:31 AM TREE PULLER Polyarthralgia Fatigue, unspecified type from Last 3 Months or Most Recently Relevant to Health Maintenance Results * Hepatitis panel, acute Blood (09/14/2024 10:31 AM TREE PULLER) Hep A IgM NON-REACTI VE NON-REACT MARITA [facility] Comment: For additional information, please refer to http://Vivakor.Photolitec/faq/JOL431 (This link is being provided for informational/ educational purposes only.) HepBsAg NON-REACTI VE NON-REACT MARITA [facility] Comment: For additional information, please refer to http://Anbado [employer]/faq/FWQ972 (This link is being provided for informational/ educational purposes only.) Hep B core IgM NON-REACTI VE NON-REACT MARITA [facility] Comment: For additional information, please refer to http://[employer]/faq/WLM650 (This link is being provided for informational/ educational purposes only.) Hep C Ab NON-REACTI VE NON-REACT MARITA [facility] Comment: HCV antibody was non-reactive. There is no laboratory evidence of HCV infection. In most cases, no further action is required. However, if recent HCV exposure is suspected, a test for HCV RNA (test code 11964) is suggested. For additional information please refer to http://Anbado Video/faq/JGH83p5 (This link is being provided for informational/ educational purposes only.) Blood 09/14/2024 10:3 1 AM TREE PULLER 09/14/2024 10:32 AM TREE PULLER Jessica [facility] MICROBIOLOG[facility] - NERAL ORDERABLES Final Result [facility] [id number] [address] [phone] from Last 3 Months or Most Recently Relevant to Health Maintenance Insurance [employer] MEDICARE GOLD Care Teams Transfer Machine Operator Relationship Specialty Start Date End Date Ion Balderas MD [address] [place] [id number] PCP - General 09/03/16 Marcin Norton MD [address] [place] [address] Consulting Physician Rheumatology 08/07/24
--- OUTSIDE RECORDS SUMMARY | 2025-03-18 14:44 | XMS_ITS | Clinical Summary ---
Author Organization [facility] [address] [facility] Address [address] [place] [id number] Care Team Providers Care Griddle Cook Name Role Phone Ion Balderas MD Primary Care Provider [phone] Marcin Norton MD Unavailable Allergies Active Allergy Reactions Criticality Noted Date [...] 12/20/2024 Assessment & Plan (12/20/2024 12:25 PM ROTOR PILOT): Follows with [facility]. Currently on Otezla 30mg BID with [...] examination. Assessment & Plan (12/20/2024 12:28 PM ROTOR PILOT): 64-year-old female with PMHx of HTN, HLD, [...] Norton. Assessment & Plan (09/14/2024 12:28 PM ROTOR PILOT): 63-year-old female with PMHx of HTN, HLD, [...] Sooner if needed. Seen with Dr. Norton. Encounters Date Type Department Care Team Description 01/02/[address] [phone] Jose Sears [employer] Approved 12/25/[address] [phone] Jose Sears Pts portion of [employer] Application 12/20/2024 11:15 AM ROTOR PILOT Office Visit [address] [phone] Jessica Bentley PA Psoriatic arthritis (HCC) (Primary Dx); Psoriasis 12/20/2024 Orders Only [address] [phone] Jessica Bentley PA 12/20/[address] [phone] Jessica Bentley PA from Last 3 Months Surgical History Surgery Date Site/Laterality Comments SECTION x3 1978, 1983, 1992 SINUS SURGERY 10/31/1987 - 10/30/1988 HYSTERECTOMY 10/31/1994 - 10/30/1995 KNEE ARTHROSCOPY Bilateral 1992, 1993 ELBOW SURGERY 10/31/1989 - 10/30/1990 tennis elbow FOOT SURGERY 10/31/2006 - 10/30/2007 LITHOTRIPSY 10/31/2018 - 10/30/2019 CHOLECYSTECTOMY 12/02/2017 Social History Tobacco Use Types Packs/Day Years Used Date Smoking Tobacco: Never Tobacco Cessation:Counseling Given: Not Answered Comments Unknown Sex and Gender Information Value Date Recorded Sex Assigned at Not on file Legal Sex Female 4:24 AM ROTOR PILOT Gender Identity Not on file Sexual Orientation Not on file Obstetrics History Last Filed Vital Signs Vital Sign Reading Time Taken Comments Blood Pressure 122/74 12/20/2024 11:12 AM ROTOR PILOT Pulse 80 12/20/2024 11:12 AM ROTOR PILOT Temperature - - Respiratory Rate - - Oxygen Saturation 98% 12/20/2024 11:12 AM ROTOR PILOT Inhaled Oxygen Concentration - - Weight 48.7 kg (107 lb 6.4 oz) 12/20/2024 11:12 AM ROTOR PILOT Height 152.4 cm (5') 12/20/2024 11:12 AM ROTOR PILOT Body Mass Index 20.98 12/20/2024 11:12 AM ROTOR PILOT Plan of Treatment Health Maintenance Due Date Last Done Comments Breast Cancer Screening-Mammogram 1959 Colon Cancer Screening-Colonoscopy 1959 Depression Screening 1959 Fall Risk Assessment 1959 Osteoporosis Screening-Bone Density Scan 1959 Hepatitis B Screening 1977 Pneumococcal vaccine 65+ (1 of 1 - PCV) 2009 Zoster Vaccine (1 of 2) 2009 Covid-19 Vaccine (2 - 2023-2 5 season) 2024 08/11/2021 Well Visit 65+ 2024 DTaP/Tdap/Td Vaccine (2 - Td or Tdap) 09/03/2025 09/03/2015 Influenza Vaccine Completed 08/24/2024, , 08/12/2022, Additional history exists Hepatitis C Screening Completed 09/14/2024 Procedures Procedure Name Priority Date/Time Associated Diagnosis Comments HEPATITIS PANEL, ACUTE Routine 09/14/2024 10:31 AM ROTOR PILOT Polyarthralgia Fatigue, unspecified type from Last 3 Months or Most Recently Relevant to Health Maintenance Results * Hepatitis panel, acute Blood (09/14/2024 10:31 AM ROTOR PILOT) Hep A IgM NON-REACTI VE NON-REACT MARITA [facility] Comment: For additional information, please refer to http://Celergo.[employer]ics/faq/FMR869 (This link is being provided for informational/ educational purposes only.) HepBsAg NON-REACTI VE NON-REACT MARITA [facility] Comment: For additional information, please refer to http://Celergo.[employer]/faq/WVD389 (This link is being provided for informational/ educational purposes only.) Hep B core IgM NON-REACTI VE NON-REACT MARITA [facility] Comment: For additional information, please refer to http://Celergo.[employer]/faq/EWA679 (This link is being provided for informational/ educational purposes only.) Hep C Ab NON-REACTI VE NON-REACT MARITA [facility] Comment: HCV antibody was non-reactive. There is no laboratory evidence of HCV infection. In most cases, no further action is required. However, if recent HCV exposure is suspected, a test for HCV RNA (test code 58410) is suggested. For additional information please refer to http://education.[employer]/faq/SMP37r3 (This link is being provided for informational/ educational purposes only.) Blood 09/14/2024 10:3 1 AM ROTOR PILOT 09/14/2024 10:32 AM ROTOR PILOT Jessica [facility] MICROBIOLOGY - NERAL ORDERABLES Final Result [facility] [id number] [place] [phone] from Last 3 Months or Most Recently Relevant to Health Maintenance Insurance [employer] MED[employer] GOLD Care Teams Griddle Cook Relationship Specialty Start Date End Date Ion Balderas MD [address] [place] [address] PCP - General 09/03/16 Marcin Norton MD [address] [place] [id number] Consulting Physician Rheumatology 08/07/24
--- OUTSIDE RECORDS SUMMARY | 2025-03-18 14:44 | XMS_ITS | Clinical Summary ---
Author Organization [facility] Address [address] [place] [address] Care Team Providers Care Phone Manager Name Role Phone Ion Balderas MD Primary Care Provider [phone] Allergies Active Allergy Reactions Criticality Noted Date Comments Tape Rash Low 10/20/2019 Medications hydrocodone-fritz taminophen 5-325 MG tablet Take 1 tablet by mouth every 6 (six) hours as needed for Pain. 10/11/2019 Active rosuvastatin 10 MG tablet Take 10 mg by mouth daily. Active meloxicam 15 MG tablet Take 15 mg by mouth daily. Active metoprolol succinate ER 25 MG 24 hr tablet Take 25 mg by mouth daily. Active amitriptyline 100 MG tablet Take 100 mg by mouth nightly at bedtime. Active pantoprazole EC 40 MG tablet Take 40 mg by mouth. Active vitamin E 400 UNIT capsule Take 400 Units by mouth daily. Active SUMAtriptan 50 MG tablet Take 50 mg by mouth 2 (two) times daily as needed for Migraine. Max of 4 tablets (200 mg) in 24 hours. Active Apremilast (OTEZLA) 30 MG Tab Take by mouth 2 (two) times daily. Active fenofibrate 160 MG tablet Take 160 mg by mouth daily. Active estradiol 1 MG tablet Take 1 mg by mouth daily. Active vitamin D2, ergocalciferol, (VITAMIN D, ERGOCALCIFEROL, ) 85161 UNITS capsule Take 50,000 Units by mouth weekly. Active Biotin 1000 MCG Tab Take 1,000 mcg by mouth daily. Active Turmeric 500 MG Cap Take 1 capsule by mouth daily. Active metroNIDAZOLE 500 MG tablet Take 500 mg by mouth 3 (three) times daily. Active tamsulosin 0.4 MG Cap Take 1 capsule (0.4 mg total) by mouth daily. 30 capsule 2019 Active sodium chloride 0.9 % solution NS 75ml/hr 1000 mL 10/22/2019 Active oxyCODONE-aceta minophen 5-325 MG tabletIndicatio ns:Acute Pain < 7 Day Supply Take 1 tablet by mouth every 4 (four) hours as needed. Indications: Acute Pain < 7 Day Supply 21 tablet 10/22/2019 Active HYDROmorphone 1 MG 1 mg (2 mg split tab)Indications :Chronic Pain Indications: Chronic Pain 1 mg IVP every 3 hours 12 each 10/22/2019 Active Active Problems Problem Noted Date Diagnosed Date Migraine headache 10/22/2019 Right nephrolithiasis 10/20/2019 Family History Medical History Relation Comments Diabetes Father Heart Disease Father Heart Disease Mother Stroke Mother Relation Status Comments Father dementia, DVT's Mother Social History Tobacco Use Types Packs/Day Years Used Date Smoking Tobacco: Never Smokeless Tobacco: Never Alcohol Use Standard Drinks/Week Comments No 0 (1 standard drink = 0.6 oz pur e alcohol) AUDIT-C Answer Date Recorded Frequency of Alcohol Consumption Never 10/20/2019 Average Number of Drinks Not on file 019 Frequency of Binge Drinking Not on file 10/01 Comments No Sex and Gender Information Value Date Recorded Sex Assigned at Not on file Legal Sex Female 8:03 PM CDT Gender Identity Not on file Sexual Orientation Not on file Last Filed Vital Signs Vital Sign Reading Time Taken Comments Blood Pressure 161/83 10/22/2019 4:18 PM BORDER MEASURER Pulse 99 10/22/2019 4:18 PM BORDER MEASURER Temperature 36.1 C (96.98 F) 10/22/2019 4:18 PM BORDER MEASURER Respiratory Rate 20 10/22/2019 4:18 PM BORDER MEASURER Oxygen Saturation 97% 10/22/2019 4:18 PM BORDER MEASURER Inhaled Oxygen Concentration - - Weight 59.1 kg (130 lb 3.2 oz) 10/21/2019 4:33 A M BORDER MEASURER Height 152.4 cm (5') 10/20/2019 7:53 PM BORDER MEASURER Body Mass Index 25.43 10/20/2019 7:53 PM BORDER MEASURER Plan of Treatment Health Maintenance Due Date Last Done Comments Colorectal Cancer Screening Colonoscopy (10 Years) 1959 Hepatitis C 1977 DTaP, Tdap and Td Vaccines ( 1 - Tdap) 1978 Mammogram Screening 1999 Pneumococcal Vaccine: 50+ Ye ars (1 of 1 - PCV) 2009 Zoster Vaccines (1 of 2) 2009 COVID-19 Vaccine (1 - 2023-2 5 season) 2024 Dexa Scan (General) 2024 RSV Immunization or 60+ Years (1 - 1-dose 75+ series) 2034 Meningococcal B Vaccine Aged Out No l onger eligible based on patient's age to complete this topic Meningococcal Vaccine Aged Out No shima marlyn eligible based on patient's age to complete this topic RSV Immunizations Under 20 Months Aged Out No longer eligible based on patient's age to complete this topic Insurance [employer] Advance Directives * Full Code (Latest Code Status on File) Date Activated Date Inactivated Comments 10/20/2019 8:03 PM 10/22/2019 8:16 PM Care Teams Phone Manager Relationship Specialty Start Date End Date Ion Balderas MD [address] [place] [id number] PCP - General FAMILY PRACTICE 10/20/19
== END 2025-03-18 14:38 | disposition home or self-care (01) ==
PROVIDERS: PCP Family Medicine; Visit Provider Urology
DX: N20.0 Calculus of kidney (principal)
CPT/HCPCS: 74018; 74176

== ENCOUNTER 2025-06-21 01:24 | Day surgery (SDC) | payer MEDICARE, SELFPAY ==
[2025-06-07 15:46] VITALS: BMI 19.8
--- OUTSIDE RECORDS SUMMARY | 2025-06-21 01:27 | XMS_ITS | Clinical Summary ---
Author Organization [facility] Address [address] [place] [address] Care Team Providers Care Properties Supervisor Name Role Phone Ion Balderas MD Primary Care Provider [phone] Allergies Active Allergy Reactions Criticality Noted Date [...] vitamin D2, ergocalciferol, (VITAMIN D, ERGOCALCIFEROL, ) 07850 UNITS capsule Take 50,000 Units by mouth [...] Comments Blood Pressure 161/83 10/22/2019 4:18 PM FITNESS/WELLNESS DIRECTOR Pulse 99 10/22/2019 4:18 PM FITNESS/WELLNESS DIRECTOR Temperature 36.1 C (96.98 F) 10/22/2019 4:18 PM FITNESS/WELLNESS DIRECTOR Respiratory Rate 20 10/22/2019 4:18 PM FITNESS/WELLNESS DIRECTOR Oxygen Saturation 97% 10/22/2019 4:18 PM FITNESS/WELLNESS DIRECTOR Inhaled Oxygen Concentration - - Weight 59.1 kg (130 lb 3.2 oz) 10/21/2019 4:33 A M FITNESS/WELLNESS DIRECTOR Height 152.4 cm (5') 10/20/2019 7:53 PM FITNESS/WELLNESS DIRECTOR Body Mass Index 25.43 10/20/2019 7:53 PM FITNESS/WELLNESS DIRECTOR Plan of Treatment Upcoming Encounters Date Type Department Care Team (Late st Contact Info) Description 06/28/2025 9:30 AM CDT Appointment [facility] Interventional Radiology [address] [place] [address] Britt Severino, BOBBI [address] [place] [address] Health Maintenance Due Date Last Done Comments Colorectal Cancer Screening Colonoscopy (10 Years) 1959 Hepatitis C 1977 DTaP, Tdap and Td Vaccines ( 1 - Tdap) 1978 Mammogram Screening 1999 Pneumococcal Vaccine: 50+ Ye ars (1 of 1 - PCV) 2009 Zoster Vaccines (1 of 2) 2009 COVID-19 Vaccine ( - 2023-2 5 season) 2024 Dexa Scan [...] 8:03 PM 10/22/2019 8:16 PM Care Teams Properties Supervisor Relationship Specialty Start Date End Date Ion Balderas MD [address] [place] [address] PCP - General FAMILY PRACTICE 10/20/19
--- OUTSIDE RECORDS SUMMARY | 2025-06-21 01:27 | XMS_ITS | Clinical Summary ---
Author Organization [facility] [address] [facility] Address [address] [place] [id number] Care Team Providers Care Tools And Parts Attendant Name Role Phone Ion Balderas MD Primary Care Provider [phone] Marcin Norton MD Unavailable [phone] Allergies Active Allergy Reactions Criticality Noted Date [...] 12/20/2024 Assessment & Plan (12/20/2024 12:25 PM ROPE MACHINE SETTER): Follows with [facility]. Currently on Otezla 30mg BID with [...] examination. Assessment & Plan (12/20/2024 12:28 PM ROPE MACHINE SETTER): 64-year-old female with PMHx of HTN, HLD, [...] Norton. Assessment & Plan (09/14/2024 12:28 PM ROPE MACHINE SETTER): 63-year-old female with PMHx of HTN, HLD, [...] Sooner if needed. Seen with Dr. Norton. Surgical History Surgery Date Site/Laterality Comments SECTION [...] on file Legal Sex Female 4:24 AM ROPE MACHINE SETTER Gender Identity Not on file Sexual Orientation Not on file Obstetrics History Last Filed Vital Signs Vital Sign Reading Time Taken Comments Blood Pressure 122/74 12/20/2024 11:12 AM ROPE MACHINE SETTER Pulse 80 12/20/2024 11:12 AM ROPE MACHINE SETTER Temperature - - Respiratory Rate - - Oxygen Saturation 98% 12/20/2024 11:12 AM ROPE MACHINE SETTER Inhaled Oxygen Concentration - - Weight 48.7 kg (107 lb 6.4 oz) 12/20/2024 11:12 AM ROPE MACHINE SETTER Height 152.4 cm (5') 12/20/2024 11:12 AM ROPE MACHINE SETTER Body Mass Index 20.98 12/20/2024 11:12 AM ROPE MACHINE SETTER Plan of Treatment Health Maintenance Due Date Last Done Comments Breast Cancer Screening-Mammogram 1959 Colon Cancer Screening-Colonoscopy 1959 Depression Screening 1959 Fall Risk Assessment 1959 Osteoporosis Screening-Bone Density Scan 1959 Hepatitis B Screening 1977 Pneumococcal vaccine 65+ (1 of 1 - PCV) 2009 Zoster Vaccine (1 of 2) 2009 Covid-19 Vaccine (2 - 2023-2 5 season) 2024 08/11/2021 Well Visit 65+ 2024 Influenza Vaccine (#1) 2025 , 07/16/2023, 08/12/2022, Additional history exists DTaP/Tdap/Td Vaccine (2 - Td or Tdap) 09/03/2025 09/03/2015 Hepatitis C Screening Completed 09/14/2024 Procedures Procedure Name Priority Date/Time Associated Diagnosis Comments HEPATITIS PANEL, ACUTE Routine 09/14/2024 10:31 AM ROPE MACHINE SETTER Polyarthralgia Fatigue, unspecified type from Last 3 Months or Most Recently Relevant to Health Maintenance Results * Hepatitis panel, acute Blood (09/14/2024 10:31 AM ROPE MACHINE SETTER) Hep A IgM NON-REACTI VE NON-REACT MARITA [facility] Comment: For additional information, please refer to http://Splunk/faq/XUI558 (This link is being provided for informational/ educational purposes only.) HepBsAg NON-REACTI VE NON-REACT MARITA [facility] Comment: For additional information, please refer to http://Splunk/faq/DGO884 (This link is being provided for informational/ educational purposes only.) Hep B core IgM NON-REACTI VE NON-REACT MARITA [facility] Comment: For additional information, please refer to http://Splunk/faq/SSU986 (This link is being provided for informational/ educational purposes only.) Hep C Ab NON-REACTI VE NON-REACT MARITA [facility] Comment: HCV antibody was non-reactive. There is no laboratory evidence of HCV infection. In most cases, no further action is required. However, if recent HCV exposure is suspected, a test for HCV RNA (test code 88855) is suggested. For additional information please refer to http://Splunk/faq/EQJ17e4 (This link is being provided for informational/ educational purposes only.) Blood 09/14/2024 10:3 1 AM ROPE MACHINE SETTER 09/14/2024 10:32 AM ROPE MACHINE SETTER [facility] - NERAL ORDERABLES Final Result [facility] [id number] [address] [phone] from Last 3 Months or Most Recently Relevant to Health Maintenance Insurance [employer] MEDICARE GOLD Care Teams Tools And Parts Attendant Relationship Specialty Start Date End Date Ion Balderas MD [address] [place] [id number] PCP - General 09/03/16 Marcin Norton MD [facility] [place] [address] Consulting Physician Rheumatology 08/07/24
[2025-06-21 06:50] VITALS: BP 138/63; PULSE 77; RESP 18; TEMP 36.1; O2SAT 100; BMI 19.8
[2025-06-21] MEDS: LACTATED RINGERS 1,000 ML 150 ML IV CONT (06:59)
--- NOTE | 2025-06-21 07:05 | WPDANESEPPF ---
Anes - Initial Pre Proc Eval Procedure: Operation Date: 06/21/25 08:00 Proposed Procedures p Colonoscopy - Luis Lanza MD Date/Time: 06/21/25 07:05 Surgeon: Luis Lanza MD Pre Op Diagnosis: Abnormal weight loss Patient Data Age: 64 Gender: F Height: 1.52 m Weight: 46.2 kg Last Vital Signs Temp 36.1 C L 06/21/25 06:50 Pulse 77 06/21/25 06:50 Resp 18 06/21/25 06:50 BP 138/63 06/21/25 06:50 Pulse Ox 100 06/21/25 06:50 O2 Del Method Room Air 06/21/25 06:50 Allergies Allergy/AdvReac Type Severity Reaction Status Date / Time adhesive tape AdvReac Mild RASH/RIPS Verified 06/21/25 06:46 THE SKIN OFF Home Medications ?Medication ?Instructions ?Recorded ?Confirmed ?Type fenofibrate 160 mg tablet 160 mg PO HS #90 tabs 06/20/24 06/21/25 Rx apremilast 30 mg tablet (Otezla) 30 mg PO BID 08/13/24 06/21/25 History ergocalciferol (vitamin D2) 1,250 50,000 unit PO WEEKLY #12 caps 12/10/24 06/21/25 Rx mcg (50,000 unit) capsule (Vitamin D2) sumatriptan succinate 100 mg tablet See Rx Instructions PO .COMPLEX 12/10/24 06/07/25 Rx #14 tabs zolpidem 5 mg tablet 5 mg PO QHS #30 tabs 12/10/24 06/21/25 Rx cyclobenzaprine 10 mg tablet See Rx Instructions .Route 02/27/25 06/21/25 Rx .COMPLEX #30 tabs rosuvastatin 5 mg tablet See Rx Instructions .Route 03/27/25 06/21/25 Rx .COMPLEX #90 tabs metoprolol succinate 25 mg 25 mg PO HS #90 tabs 05/30/25 06/21/25 Rx tablet,extended release 24 hr dicyclomine 10 mg capsule 10 mg PO TID PRN abdominal 05/31/25 06/07/25 Rx discomfort #30 caps oxybutynin chloride 5 mg tablet See Rx Instructions .Route 05/31/25 06/21/25 Rx .COMPLEX #180 tabs famotidine 20 mg tablet 20 mg PO DAILY 06/07/25 06/21/25 History magnesium 250 mg tablet 500 mg PO DAILY 06/07/25 06/21/25 History omega 5-ttk-dhl-fish oil 1,000 mg 1 cap PO DAILY 06/07/25 06/21/25 History (120 mg-180 mg) capsule (Fish Oil) tramadol 200 mg tablet,extended 200 mg PO DAILY PRN pain 06/07/25 06/07/25 History release 24 hr meloxicam 15 mg tablet See Rx Instructions .Route 06/12/25 06/21/25 Rx .COMPLEX #90 tabs Patient hx anesthesia problems: none Family hx anesthesia problems: none Results Review: All pre-operative results and documents have been reviewed as part of the pre-operative evaluation. FORMERLY [facility], [facility] Past Medical History Medical History Degenerative joint disease (DJD) of hip Contusion of bone Left knee pain Insomnia Hot flashes due to menopause Osteopenia Screening due Impingement of left shoulder Right shoulder pain History of nephrolithiasis Degenerative joint disease of knee Psoriatic arthritis Osteoarthritis Degenerative disc disease, lumbar Prediabetes Irritable bowel syndrome GERD (gastroesophageal reflux disease) Left shoulder pain Migraines Fibromyalgia Rheumatoid arthritis Hyperlipidemia (Unknown) HTN (hypertension) Surgical History Surgical History History of lithotripsy 09/16/2023 Hx of right knee surgery 2006 S/P cystoscopy 2014 S/P cystoscopy with ureteral stent placement Right ureteroscopy, laser lithotripsy, stone extraction, retrograde pyelogram, stent insertion 10/23/2019 S/P right knee arthroscopy 2018 History of removal of cyst R foot 2008 H/O elbow surgery right elbow 2002 Hx of sinus surgery 1997 H/O: hysterectomy 1995 History of section 1978, 1983, 1992 S/P left knee arthroscopy 1995 History of cholecystectomy 12/2017 Trigger finger, right ring finger Family History Family History Mother Acute myocardial infarction Cerebrovascular accident Hypertension Father Acute myocardial infarction History of blood clots Diabetes mellitus Hypertension Social History Social History Smoking status: Never smoker Tobacco type: cigarettes Second hand tobacco smoke exposure: Yes Smoking end date: 10/31/06 Additional smoking assessment comments: 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 Alcohol intake: never Alcohol use details: VERY RARE Substance use: never Substance use type: does not use Do You Feel Safe in your Home?: Yes Lack of Transportation: No Lack of Food: Never True Current Housing: I Have Housing Concerned About Future Housing: No Difficulty Paying Gas/Electric Bills: No Difficulty Paying for Meds: No Currently Unemployed: No Education: High School Diploma/GED Difficulty w/ Childcare or Family Care: No Living arrangements: with family Occupation/Education: occupation Gender identity (if verbalized by the patient): Female Sexual Orientation (if Verbalized by the Patient): Straight or Heterosexual Spiritual care concerns: No Agree to blood products: Yes Anes - Eval Final PreProcedure Day of Procedure 06/21/25 07:05 Patient weight: thin Heart: regular rate and rhythm Lungs: clear to auscultation Airway: Mallampati scale class II Neurological: alert and oriented Last oral intake: >/= 8 hours ASA classification: III Emergent: no Anesthetic plan: proceed Anesthesia type and monitoring: general GIVS and standard monitoring Results Review: All pre-operative results and documents have been reviewed as part of the pre-operative evaluation. Informed Consent: The patient's anesthetic plan and its attendant risks and benefits were discussed with the patient/family/POA. Questions were solicited and answers provided to the satisfaction of the patient/family/POA.
--- NOTE | 2025-06-21 07:53 | PM.HPGS ---
History of Present Illness History of Present Illness Consent: Risks, benefits, and alternatives have been discussed and questions answered. Patient agrees to proceed with procedure. Chief complaint: Abnormal weight loss Narrative: Amy Matias is a 64 year old female with last colonoscopy more than 10 years ago, recent weight loss Review of Systems Review of Systems: All systems reviewed & are unremarkable except as noted in HPI and below PMFSH Past Medical History Medical History (Updated 06/21/25 @ 07:54 by Luis Lanza MD) Weight loss Degenerative joint disease (DJD) of hip Contusion of bone Left knee pain Insomnia Hot flashes due to menopause Osteopenia Screening due Impingement of left shoulder Right shoulder pain History of nephrolithiasis Degenerative joint disease of knee Psoriatic arthritis Osteoarthritis Degenerative disc disease, lumbar Prediabetes Irritable bowel syndrome GERD (gastroesophageal reflux disease) Left shoulder pain Migraines Fibromyalgia Rheumatoid arthritis Hyperlipidemia (Unknown) HTN (hypertension) Surgical History Surgical History History of lithotripsy 09/16/2023 Hx of right knee surgery 2005 S/P cystoscopy 2014 S/P cystoscopy with ureteral stent placement Right ureteroscopy, laser lithotripsy, stone extraction, retrograde pyelogram, stent insertion 10/23/2019 S/P right knee arthroscopy 2018 History of removal of cyst R foot 2008 H/O elbow surgery right elbow 2001 Hx of sinus surgery 1997 H/O: hysterectomy 1995 History of section 1978, 1983, 1992 S/P left knee arthroscopy 1995 History of cholecystectomy 12/2017 Trigger finger, right ring finger Family History Family History Mother Acute myocardial infarction Cerebrovascular accident Hypertension Father Acute myocardial infarction History of blood clots Diabetes mellitus Hypertension Social History Social History Smoking status: Never smoker Tobacco type: cigarettes Second hand tobacco smoke exposure: Yes Smoking end date: 10/31/06 Additional smoking assessment comments: 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 Alcohol intake: never Alcohol use details: VERY RARE Substance use: never Substance use type: does not use Do You Feel Safe in your Home?: Yes Lack of Transportation: No Lack of Food: Never True Current Housing: I Have Housing Concerned About Future Housing: No Difficulty Paying Gas/Electric Bills: No Difficulty Paying for Meds: No Currently Unemployed: No Education: High School Diploma/GED Difficulty w/ Childcare or Family Care: No Living arrangements: with family Occupation/Education: occupation Gender identity (if verbalized by the patient): Female Sexual Orientation (if Verbalized by the Patient): Straight or Heterosexual Spiritual care concerns: No Agree to blood products: Yes Meds Home Medications and Allergies Home Medications ?Medication ?Instructions ?Recorded ?Confirmed ?Type fenofibrate 160 mg tablet 160 mg PO HS #90 tabs 06/20/24 06/21/25 Rx apremilast 30 mg tablet (Otezla) 30 mg PO BID 08/13/24 06/21/25 History ergocalciferol (vitamin D2) 1,250 50,000 unit PO WEEKLY #12 caps 12/10/24 06/21/25 Rx mcg (50,000 unit) capsule (Vitamin D2) sumatriptan succinate 100 mg tablet See Rx Instructions PO .COMPLEX 12/10/24 06/07/25 Rx #14 tabs zolpidem 5 mg tablet 5 mg PO QHS #30 tabs 12/10/24 06/21/25 Rx cyclobenzaprine 10 mg tablet See Rx Instructions .Route 02/27/25 06/21/25 Rx .COMPLEX #30 tabs rosuvastatin 5 mg tablet See Rx Instructions .Route 03/27/25 06/21/25 Rx .COMPLEX #90 tabs metoprolol succinate 25 mg 25 mg PO HS #90 tabs 05/30/25 06/21/25 Rx tablet,extended release 24 hr dicyclomine 10 mg capsule 10 mg PO TID PRN abdominal 05/31/25 06/07/25 Rx discomfort #30 caps oxybutynin chloride 5 mg tablet See Rx Instructions .Route 05/31/25 06/21/25 Rx .COMPLEX #180 tabs famotidine 20 mg tablet 20 mg PO DAILY 06/07/25 06/21/25 History magnesium 250 mg tablet 500 mg PO DAILY 06/07/25 06/21/25 History omega 7-bjy-mow-fish oil 1,000 mg 1 cap PO DAILY 06/07/25 06/21/25 History (120 mg-180 mg) capsule (Fish Oil) tramadol 200 mg tablet,extended 200 mg PO DAILY PRN pain 06/07/25 06/07/25 History release 24 hr meloxicam 15 mg tablet See Rx Instructions .Route 06/12/25 06/21/25 Rx .COMPLEX #90 tabs Allergies Allergy/AdvReac Type Severity Reaction Status Date / Time adhesive tape AdvReac Mild RASH/RIPS Verified 06/21/25 06:46 THE SKIN OFF Vital Signs Vital Signs - 24 hr 06/21/25 06:50 Temperature 97 F L Pulse Rate 77 Respiratory Rate 18 Blood Pressure 138/63 Pulse Oximetry 100 Oxygen Delivery Room Air Exam Const: General: comfortable and no acute distress HENMT: Face/Nose/Sinus: Normal nares present Eyes: General: appearance normal, both eyes and all related structures Neck: Neck: no JVD Resp: Auscultation: clear to auscultation bilaterally Cardio: Rate: regular rate Rhythm: regular rhythm GI: Inspection: non-distended GI Palp: Yes Soft to palpation Skin: General skin exam: normal color Neuro: Speech: normal speech Extrem: General: normal to inspection Psych: Mental Status: mental status grossly normal Assessment and Plan Assessment and plan (1) Weight loss: Code(s): R63.4 - Abnormal weight loss Status: Acute Assessment and Plan: colonoscopy
[2025-06-21 08:06] VITALS: BP 130/68; PULSE 90; RESP 24; O2SAT 98
[2025-06-21 08:16] VITALS: BP 121/67; PULSE 87; RESP 21; O2SAT 99
[2025-06-21 08:26] VITALS: BP 142/73; PULSE 82; RESP 17; O2SAT 100
== END 2025-06-21 08:28 | disposition home or self-care (01) ==
PROVIDERS: PCP Family Medicine; Visit Provider Internal Medicine Gastroenterology
PROC: 0DJD8ZZ Inspection of Lower Intestinal Tract, Via Natural or Artificial Opening Endoscopic (ICD-10-PCS; CPT 45378; principal; 2025-06-21 08:00)
DX: Z12.11 Encounter for screening for malignant neoplasm of colon (principal); K64.8 Other hemorrhoids; R63.4 Abnormal weight loss; Z68.1 Body mass index [BMI] 19.9 or less, adult; E78.5 Hyperlipidemia, unspecified; I10 Essential (primary) hypertension; R73.03 Prediabetes; K58.9 Irritable bowel syndrome, unspecified; K21.9 Gastro-esophageal reflux disease without esophagitis; M79.7 Fibromyalgia; G47.00 Insomnia, unspecified; M51.369 Other intervertebral disc degeneration, lumbar region without mention of lumbar back pain or lower extremity pain; M85.88 Other specified disorders of bone density and structure, other site; M17.10 Unilateral primary osteoarthritis, unspecified knee; L40.50 Arthropathic psoriasis, unspecified; M16.10 Unilateral primary osteoarthritis, unspecified hip; M06.9 Rheumatoid arthritis, unspecified; Z79.891 Long term (current) use of opiate analgesic; Z98.890 Other specified postprocedural states; Z90.49 Acquired absence of other specified parts of digestive tract; Z87.891 Personal history of nicotine dependence; Z87.442 Personal history of urinary calculi; Z82.49 Family history of ischemic heart disease and other diseases of the circulatory system
CPT/HCPCS: G0121; J2704; J7120

== ENCOUNTER 2025-09-09 12:57 | Outpatient (CLI) | payer MEDICARE, SELFPAY ==
--- NOTE | ~2025-09-09 | CT_ITS ---
EXAMINATION: CT abdomen pelvis wo con DATE: 09/09/2025 13:22 INDICATION: Right lower quadrant abdominal pain TECHNIQUE: Computed tomography (CT) of the abdomen and pelvis was performed without intravenous contrast. Automated exposure control and iterative reconstruction technique were employed. The dose-length product was 190.60 mGy-cm. COMPARISON: 03/18/2025 FINDINGS: Calcified right lower lobe nodule consistent with old granulomatous disease. Mild discoid atelectasis at the right middle lobe. Heart size is normal. No pericardial or pleural effusion. Cholecystectomy clips at the gallbladder fossa. Gas case at the caudal right hepatic lobe consistent with old granulomatous disease. Spleen, pancreas, bilateral adrenal glands and right kidney are normal. 2 mm nonobstructing stone at a lower pole calyx of the left kidney. There is dilation of the fluid-filled appendix is 1.4 cm beginning immediately distal to a small calcified appendicolith in the proximal appendix. There is small amount of periappendiceal inflammatory stranding consistent with acute appendicitis. No bowel obstruction. Bladder is normal. The uterus is not identified and has likely been surgically resected. No abscess or free intraperitoneal gas or fluid. No pathologically enlarged abdominal or pelvic lymphadenopathy. Mild lumbar levocurvature was severe lower lumbar spondylosis. IMPRESSION: 1. Acute appendicitis. Dr. Downs discussed these findings with Vivian Cano at 1:50 PM. Reviewed, dictated and finalized at location A. AL ARTIST IMPRESSION: 1. Acute appendicitis. Dr. Downs discussed these findings with Vivian james t 1:50 PM.
--- OUTSIDE RECORDS SUMMARY | 2025-09-09 13:13 | XMS_ITS | Clinical Summary ---
Author Organization [facility] Address [address] [place] [address] Care Team Providers Care Welt Wheeler Name Role Phone Ion Balderas MD Primary Care Provider [phone] Allergies Active Allergy Reactions Criticality Noted Date [...] vitamin D2, ergocalciferol, (VITAMIN D, ERGOCALCIFEROL, ) 83463 UNITS capsule Take 50,000 Units by mouth [...] Date Migraine headache 10/22/2019 Right nephrolithiasis 10/20/2019 Encounters Date Type Department Care Team Description 07/19/2025 9:46 AM CDT - 07/19/2025 11:59 PM CDT Hospital Encounter [facility] Interventional Radiology [address] [facility] [place] [address] Britt Severino NP Discharge Disposition: Home or Self Care (Routine Discharge) 07/19/2025 Travel from Last 3 Months Family History Medical History Relation Comments Diabetes [...] Information Value Date Recorded Sex Assigned at Female 07/19/2025 9:40 AM CDT Legal Sex Female 8:03 PM CDT Gender Identity Not on file Sexual Orientation Not on file Last Filed Vital Signs Vital Sign Reading Time Taken Comments Blood Pressure 161/83 10/22/2019 4:18 PM ADVANCED RESEARCH PROGRAMS DIRECTOR Pulse 99 10/22/2019 4:18 PM ADVANCED RESEARCH PROGRAMS DIRECTOR Temperature 36.1 C (96.98 F) 10/22/2019 4:18 PM ADVANCED RESEARCH PROGRAMS DIRECTOR Respiratory Rate 20 10/22/2019 4:18 PM ADVANCED RESEARCH PROGRAMS DIRECTOR Oxygen Saturation 97% 10/22/2019 4:18 PM ADVANCED RESEARCH PROGRAMS DIRECTOR Inhaled Oxygen Concentration - - Weight 59.1 kg (130 lb 3.2 oz) 10/21/2019 4:33 AM ADVANCED RESEARCH PROGRAMS DIRECTOR Height 152.4 cm (5') 10/20/2019 7:53 PM ADVANCED RESEARCH PROGRAMS DIRECTOR Body Mass Index 25.43 10/20/2019 7:53 PM ADVANCED RESEARCH PROGRAMS DIRECTOR Plan of Treatment Health Maintenance Due Date Last Done Comments Colorectal Cancer Screening Colonoscopy (10 Years) 1959 Hepatitis C 1977 Mammogram Screening 1999 Zoster Vaccines (1 of 2) 2009 Dexa Scan (General) 2024 COVID-19 Vaccine (2 - season) 2025 08/11/2021 Influenza Adult (#1) 2025 08/24/2024, 07/16/2023, 08/12/2022, Additional history exists DTaP, Tdap and Td Vaccines (2 - Td or Tdap) 09/03/2025 09/03/2015 RSV Immunization or 60+ Years Completed 09/07/2024 Pneumococcal Vaccine: 50+ Years Completed 12/21/2024 Hepatitis A Vaccines Aged Out No long er eligible based on patient's age to complete this topic Meningococcal B Vaccine Aged Out No l onger eligible based on patient's age to complete this topic Meningococcal Vaccine Aged Out No shima marlyn eligible based on patient's age to complete this topic RSV Immunizations Under 20 Months Aged Out No longer eligible based on patient's age to complete this topic Procedures Procedure Name Priority Date/Time Associated Diagnosis Comments IR HIP INJ/ASP LT Routine 07/19/2025 10: 37 AM CDT Left hip pain from Last 3 Months Results * IR HIP INJ/ASP LT (07/19/2025 10:37 AM CDT) Anatomical Region Laterality Modality Hip Interventional R adiology, Radiographic Imaging, Radiographic Imaging 07/19/2025 10:4 4 AM CDT Impressions 07/19/2025 10:46 AM CDT =====IMPRESSION:===== Left hip therapeutic injection using fluoroscopic guidance. Ordered By: BRITT APARICIO Interpreted By: Philippe Elias MD, 07/19/2025 10:44 AM Narrative 07/19/2025 10:46 AM CDT [address] [address] Examination: Fluoroscopic joint injection, left hip Exam date/time: 07/19/2025 10:21 AM Reason For Exam: LEFT HIP PAIN Fluoroscopy time: 0.1 minutes, one image Technique: Patient education occurred. The details of procedure were discussed with the patient including all applicable risks, benefits and alternatives. The patient's questions were answered fully. Patient's written and verbal consent were obtained. A timeout was performed during which the patient's correct identity, procedure site and procedure type were confirmed with cooperation of the patient. The patient was then positioned appropriately and the site of optimal percutaneous access was identified under imaging guidance and the skin was marked. The site was then prepped and draped in the usual sterile fashion. Local anesthesia was achieved using 1% lidocaine. Using fluoroscopic guidance, a 22-gauge needle was advanced into the joint. Small amount of Isovue contrast was injected under fluoroscopic observation to confirm intra-articular needle tip position. Subsequently, Depo-Medrol, 80 mg and 3 mL 0.5% bupivacaine were then injected into the joint. The needle was then removed. The patient tolerated the procedure well with no immediate complication. Findings: Contrast opacifies the left hip joint space. Procedure Note Philippe Elias MD - 07/19/2025 [facility] [address] [place], [place] [address] Examination: Fluoroscopic joint injection, left hip Exam date/time: 07/19/2025 10:21 AM Reason For Exam: LEFT HIP PAIN Fluoroscopy time: 0.1 minutes, one image Technique: Patient education occurred. The details of procedure werediscussed with the patient including all applicable risks, benefits andalternatives. The patient's questions were answered fully. Patient'swritten and verbal consent were obtained. A timeout was performed duringwhich the patient's correct identity, procedure site and procedure typewere confirmed with cooperation of the patient. The patient was thenpositioned appropriately and the site of optimal percutaneous access wasidentified under imaging guidance and the skin was marked. The site wasthen prepped and draped in the usual sterile fashion. Local anesthesia wasachieved using 1% lidocaine. Using fluoroscopic guidance, a 22-gauge needle was advanced into thejoint. Small amount of Isovue contrast was injected under fluoroscopicobservation to confirm intra-articular needle tip position. Subsequently,Depo-Medrol, 80 mg and 3 mL 0.5% bupivacaine were then injected into thejoint. The needle was then removed. The patient tolerated the procedurewell with no immediate complication. Findings: Contrast opacifies the left hip joint space. =====IMPRESSION:===== Left hip therapeutic injection using fluoroscopic guidance. Ordered By: BRITT APARICIO Interpreted By: Philippe Elias MD, 07/19/2025 10:44 AM Britt Aparicio STENOTYPIST INTERVENTIONAL RADIOLOGY nal Result from Last 3 Months Insurance [employer] MEDICARE Advance Directives * Full Code (Latest Code Status on File) Date Activated Date Inactivated Comments 10/20/2019 8:03 PM 10/22/2019 8:16 PM Care Teams Welt Wheeler Relationship Specialty Start Date End Date Ion Balderas MD [address] [place] [address] PCP - General FAMILY PRACTICE 10/20/19
--- OUTSIDE RECORDS SUMMARY | 2025-09-09 13:14 | XMS_ITS | Clinical Summary ---
Author Organization [facility] [address] [facility] Address [address] [place] [id number] Care Team Providers Care Freelance Displayer Name Role Phone Ion Balderas MD Primary Care Provider Marcin Norton MD Unavailable [phone] Allergies Active Allergy Reactions Criticality Noted Date [...] 12/20/2024 Assessment & Plan (12/20/2024 12:25 PM VENEER PRESS OPERATOR): Follows with [facility]. Currently on Otezla 30mg BID with [...] examination. Assessment & Plan (12/20/2024 12:28 PM VENEER PRESS OPERATOR): 64-year-old female with PMHx of HTN, HLD, [...] Norton. Assessment & Plan (09/14/2024 12:28 PM VENEER PRESS OPERATOR): 63-year-old female with PMHx of HTN, HLD, [...] 10/31/1994 - 10/30/1995 KNEE ARTHROSCOPY Bilateral 1992, 1994 ELBOW SURGERY 10/31/1989 - 10/30/1990 tennis elbow FOOT SURGERY 10/31/2006 - 10/30/2007 LITHOTRIPSY 10/31/2018 - 10/30/2019 CHOLECYSTECTOMY 12/02/2017 Social History Tobacco Use Types Packs/Day Years Used Date Smoking Tobacco: Never Tobacco Cessation:Counseling Given: Not Answered Comments Unknown Sex and Gender Information Value Date Recorded Sex Assigned at Not on file Legal Sex Female 4:24 AM VENEER PRESS OPERATOR Gender Identity Not on file Sexual Orientation Not on file Last Filed Vital Signs Vital Sign Reading Time Taken Comments Blood Pressure 122/74 12/20/2024 11:12 AM VENEER PRESS OPERATOR Pulse 80 12/20/2024 11:12 AM VENEER PRESS OPERATOR Temperature - - Respiratory Rate - - Oxygen Saturation 98% 12/20/2024 11:12 AM VENEER PRESS OPERATOR Inhaled Oxygen Concentration - - Weight 48.7 kg (107 lb 6.4 oz) 12/20/2024 11:12 AM VENEER PRESS OPERATOR Height 152.4 cm (5') 12/20/2024 11:12 AM VENEER PRESS OPERATOR Body Mass Index 20.98 12/20/2024 11:12 AM VENEER PRESS OPERATOR Plan of Treatment Health Maintenance Due Date Last Done Comments Breast Cancer Screening-Mammogram 1959 Colon Cancer Screening-Colonoscopy 1959 Depression Screening 1959 Fall Risk Assessment 1959 Osteoporosis Screening-Bone Density Scan 1959 Hepatitis B Screening 1977 Pneumococcal vaccine 65+ (1 of 1 - PCV) 2009 Zoster Vaccine (1 of 2) 2009 Well Visit 65+ 2024 Covid-19 Vaccine (2 - 2024-2 6 season) 2025 08/11/2021 Influenza Vaccine (#1) 2025 , 07/16/2023, 08/12/2022, Additional history exists DTaP/Tdap/Td Vaccine (2 - Td or Tdap) 09/03/2025 09/03/2015 Hepatitis C Screening Completed 09/14/2024 Procedures Procedure Name Priority Date/Time Associated Diagnosis Comments HEPATITIS PANEL, ACUTE Routine 09/14/2024 10:31 AM VENEER PRESS OPERATOR Polyarthralgia Fatigue, unspecified type from Last 3 Months or Most Recently Relevant to Health Maintenance Results * Hepatitis panel, acute Blood (09/14/2024 10:31 AM VENEER PRESS OPERATOR) Hep A IgM NON-REACTI VE NON-REACT MARITA [facility] Comment: For additional information, please refer to http://Callystro/faq/GOE364 (This link is being provided for informational/ educational purposes only.) HepBsAg NON-REACTI VE NON-REACT MARITA [facility] Comment: For additional information, please refer to http://Callystro/faq/KAB765 (This link is being provided for informational/ educational purposes only.) Hep B core IgM NON-REACTI VE NON-REACT MARITA [facility] Comment: For additional information, please refer to http://Callystro/faq/LLX862 (This link is being provided for informational/ educational purposes only.) Hep C Ab NON-REACTI VE NON-REACT MARITA [facility] Comment: HCV antibody was non-reactive. There is no laboratory evidence of HCV infection. In most cases, no further action is required. However, if recent HCV exposure is suspected, a test for HCV RNA (test code 94554) is suggested. For additional information please refer to http://Callystro/faq/UDJ05l8 (This link is being provided for informational/ educational purposes only.) Blood 09/14/2024 10:3 1 AM VENEER PRESS OPERATOR 09/14/2024 10:32 AM VENEER PRESS OPERATOR Jessica [facility] MICROBIOLOGY - NERAL ORDERABLES Final Result [facility] [id number] [address] [phone] from Last 3 Months or Most Recently Relevant to Health Maintenance Insurance AETNA MEDICARE GOLD Care Teams Freelance Displayer Relationship Specialty Start Date End Date Ion Balderas MD [address] [place] [id number] PCP - General 09/03/16 Marcin Norton MD [address] [place] [phone] Consulting Physician Rheumatology 08/07/24
== END 2025-09-09 12:58 | disposition home or self-care (01) ==
PROVIDERS: PCP Family Medicine
DX: K35.80 Unspecified acute appendicitis (principal)
CPT/HCPCS: 74176

== ENCOUNTER 2025-09-09 14:41 | Day surgery (SDC) | payer MEDICARE, SELFPAY ==
[2025-09-09] VITALS (9 sets, daily range): BP systolic 133–181; BP diastolic 70–101; PULSE 107–128; RESP 16–24; TEMP 36.8–37; O2SAT 100
--- NOTE | ~2025-09-09 | XR_ITS ---
EXAM/PROCEDURE: XR chest 2V HISTORY: Tachycardia. CT from this AM shows appendicitis COMPARISON: August 1824 TECHNIQUE: view(s) of the chest. FINDINGS: LUNGS: There is a questionable area of density in the left retrocardiac region of uncertain etiology. 2 view chest is recommended PLEURAL SPACES: Clear. No evidence of fluid or pneumothorax. HEART/ MEDIASTINUM: Normal in appearance. SOFT TISSUES: Right upper quadrant surgical clips BONES: No acute osseous abnormality. IMPRESSION: Questionable left retrocardiac density. Two-view chest is recommended. Reviewed, dictated and finalized at location A. [employer]OR GEOTHERMAL OPERATIONS
--- OUTSIDE RECORDS SUMMARY | 2025-09-09 14:44 | XMS_ITS | Clinical Summary ---
Author Organization [facility] Address [address] [place] [address] Care Team Providers Care Desktop Support Manager Name Role Phone Ion Balderas MD Primary Care Provider [phone] Allergies Active Allergy Reactions Criticality Noted Date [...] vitamin D2, ergocalciferol, (VITAMIN D, ERGOCALCIFEROL, ) 55427 UNITS capsule Take 50,000 Units by mouth [...] - 07/19/2025 11:59 PM CDT Hospital Encounter [facility] Interventional Radiology [facility] [place] [address] Britt Severino NP Discharge Disposition: Home or [...] Comments Blood Pressure 161/83 10/22/2019 4:18 PM PAINTER ROUGH Pulse 99 10/22/2019 4:18 PM PAINTER ROUGH Temperature 36.1 C (96.98 F) 10/22/2019 4:18 PM PAINTER ROUGH Respiratory Rate 20 10/22/2019 4:18 PM PAINTER ROUGH Oxygen Saturation 97% 10/22/2019 4:18 PM PAINTER ROUGH Inhaled Oxygen Concentration - - Weight 59.1 kg (130 lb 3.2 oz) 10/21/2019 4:33 AM PAINTER ROUGH Height 152.4 cm (5') 10/20/2019 7:53 PM PAINTER ROUGH Body Mass Index 25.43 10/20/2019 7:53 PM PAINTER ROUGH Plan of Treatment Health Maintenance Due Date [...] 10:44 AM Narrative 07/19/2025 10:46 AM CDT [address] [address] Examination: Fluoroscopic joint injection, left hip Exam [...] Procedure Note Philippe Elias MD - 07/19/2025 [facility] [address] [place], [place] [address] Examination: Fluoroscopic joint injection, left hip Exam [...] Elias MD, 07/19/2025 10:44 AM Britt Aparicio CASKET TRIMMER INTERVENTIONAL RADIOLOGY nal Result from Last 3 Months Insurance AETNA MEDICARE Advance Directives * Full Code (Latest Code Status on File) Date Activated Date Inactivated Comments 10/20/2019 8:03 PM 10/22/2019 8:16 PM Care Teams Desktop Support Manager Relationship Specialty Start Date End Date Ion Balderas MD [address] [place] [address] PCP - General FAMILY PRACTICE 10/20/19
--- OUTSIDE RECORDS SUMMARY | 2025-09-09 14:44 | XMS_ITS | Clinical Summary ---
Author Organization [facility] [address] [facility] Address [address] [place] [id number] Care Team Providers Care Commercial Attache Name Role Phone Ion Balderas MD Primary Care Provider [phone] Marcin Norton MD Unavailable [phone] Allergies Active Allergy Reactions Criticality Noted Date [...] 12/20/2024 Assessment & Plan (12/20/2024 12:25 PM TOOL MACHINE SETUP OPERATOR): Follows with [facility] Dermatology. Currently on Otezla 30mg [...] examination. Assessment & Plan (12/20/2024 12:28 PM TOOL MACHINE SETUP OPERATOR): 64-year-old female with PMHx of HTN, [...] Norton. Assessment & Plan (09/14/2024 12:28 PM TOOL MACHINE SETUP OPERATOR): 63-year-old female with PMHx of HTN, [...] on file Legal Sex Female 4:24 AM TOOL MACHINE SETUP OPERATOR Gender Identity Not on file Sexual Orientation Not on file Last Filed Vital Signs Vital Sign Reading Time Taken Comments Blood Pressure 122/74 12/20/2024 11:12 AM TOOL MACHINE SETUP OPERATOR Pulse 80 12/20/2024 11:12 AM TOOL MACHINE SETUP OPERATOR Temperature - - Respiratory Rate - - Oxygen Saturation 98% 12/20/2024 11:12 AM TOOL MACHINE SETUP OPERATOR Inhaled Oxygen Concentration - - Weight 48.7 kg (107 lb 6.4 oz) 12/20/2024 11:12 AM TOOL MACHINE SETUP OPERATOR Height 152.4 cm (5') 12/20/2024 11:12 AM TOOL MACHINE SETUP OPERATOR Body Mass Index 20.98 12/20/2024 11:12 AM TOOL MACHINE SETUP OPERATOR Plan of Treatment Health Maintenance Due [...] HEPATITIS PANEL, ACUTE Routine 09/14/2024 10:31 AM TOOL MACHINE SETUP OPERATOR Polyarthralgia Fatigue, unspecified type from Last 3 Months or Most Recently Relevant to Health Maintenance Results * Hepatitis panel, acute Blood (09/14/2024 10:31 AM TOOL MACHINE SETUP OPERATOR) Hep A IgM NON-REACTI VE NON-REACT MARITA [facility] Comment: For additional information, please refer to http://nanoRETE/faq/YIZ919 (This link is being provided for informational/ educational purposes only.) HepBsAg NON-REACTI VE NON-REACT MARITA [facility] Comment: For additional information, please refer to http://nanoRETE/faq/ZUO277 (This link is being provided for informational/ educational purposes only.) Hep B core IgM NON-REACTI VE NON-REACT MARITA [facility] Comment: For additional information, please refer to http://nanoRETE/faq/CJO456 (This link is being provided for informational/ educational purposes only.) Hep C Ab NON-REACTI VE NON-REACT MARITA [facility] Comment: HCV antibody was non-reactive. There is no laboratory evidence of HCV infection. In most cases, no further action is required. However, if recent HCV exposure is suspected, a test for HCV RNA (test code 62936) is suggested. For additional information please refer to http://nanoRETE/faq/MFB60u3 (This link is being provided for informational/ educational purposes only.) Blood 09/14/2024 10:3 1 AM TOOL MACHINE SETUP OPERATOR 09/14/2024 10:32 AM TOOL MACHINE SETUP OPERATOR Jessica [facility] MICROBIOLOGY - NERAL ORDERABLES Final Result [facility] [id number] [address] [phone] from Last 3 Months or Most Recently Relevant to Health Maintenance Insurance AETNA MEDICARE GOLD Care Teams Commercial Attache Relationship Specialty Start Date End Date Ion Balderas MD [address] [place] [phone] PCP - General 09/03/16 Marcin Norton MD [address] [place] [place] [phone] Consulting Physician Rheumatology 08/07/24
--- NOTE | 2025-09-09 14:46 | ECG_ITS ---
Test Date: 2025-09-09 14:49:44 Measurements Intervals [place] Rate: 120 P: 50 SC: 132 QRS: 23 QRSD: 82 T: 47 QT: 339 QTc: 479 Interpretive Statements SINUS TACHYCARDIA LOW QRS VOLTAGE IN PRECORDIAL LEADS [QRS DEFLECTION < 1.0 mV IN CHEST LEADS] ABNORMAL RHYTHM ECG No previous ECG available for comparison Electronically Signed On 09-10-2025 17:28:37 CUSTOMS VERIFIER by Neftali Morgan M.D.
--- NOTE | 2025-09-09 14:47 | PC.NURSE ---
Pt states last meal was a yogurt bar at 0800 and a few sips of water around 1340
[2025-09-09 15:15] LABS: Hematocrit 41.1 % (37.0-47.0); Hemoglobin 13.6 g/dL (12.0-15.0); Immature Granulocyte Percent A 0.4 % (0-0.5); Lymphocytes Absolute Auto 1.64 K/mm3 (0.9-3.2); Mean Corpuscular HGB Conc 33.1 g/dl (32-36); Mean Corpuscular Hemoglobin 28.8 pg (26-34); Mean Corpuscular Volume 86.9 fl (80-100); Nucleated Red Blood Cells Absolute Auto 0.000 K/mm3 (0.0-0.012); Nucleated Red Blood Cells Perc 0.0 % (0.0-0.2); Platelet Count Result 399 k/mm3 (150-375); Red Blood Count 4.73 M/mm3 (4.2-5.4); White Blood Count 15.4 K/mm3 (4.5-10.0)
[2025-09-09 15:25] LABS: INR 1.1; Prothrombin Time 14.4 Seconds (11.1-14.7)
[2025-09-09 15:26] LABS: Alanine Aminotransferase 56 U/L (6-35); Albumin Level 4.9 g/dL (3.5-5.1); Alkaline Phosphatase 66 U/L (38-126); Anion Gap 11 mmol/L (4-12); Aspartate Amino Transferase 73 U/L (14-36); Bilirubin,Total 0.9 mg/dL (0.2-1.3); Blood Urea Nitrogen 12 mg/dL (7-17); Calcium 10.1 mg/dL (8.4-10.2); Carbon Dioxide 23 mmol/L (22-30); Chloride 100 mmol/L (98-107); Estimated CRCL calculation 40 ml/min; Estimated Glomerular Filt Rate > 60; Glucose 111 mg/dL (65-110); Partial Thromboplastin Time 31.7 Seconds (22.3-36.8); Potassium 3.8 mmol/L (3.4-5.0); Sodium 134 mmol/L (137-145); Total Protein 8.1 g/dL (6.3-8.2)
--- NOTE | 2025-09-09 17:07 | ED.GENADULT ---
HPI - General Adult General Chief complaint: Abdominal Pain Stated complaint: appendicitis Time Seen by Provider: 09/09/25 16:57 History of Present Illness HPI narrative: 64-year-old female with prior history of hypertension high cholesterol presents emergency department for evaluation for right lower quad abdominal pain started on Tuesday. Patient held off to see if the pain would improve as patient does have a prior history of kidney stones. Patient did have follow-up with primary care physician today and had an outpatient CT scan. CT scan was resulted as acute appendicitis. Patient presented our emergency department for further evaluation definitive treatment. Patient is not on any blood thinners. Patient denies any significant cardiac history. Related Data Home Medications ?Medication ?Instructions ?Recorded ?Confirmed ?Last Taken ?Type apremilast 30 mg tablet (Otezla) 30 mg PO BID 08/13/24 09/09/25 06/20/25 History famotidine 20 mg tablet 20 mg PO DAILY 06/07/25 09/09/25 06/20/25 History magnesium 250 mg tablet 500 mg PO DAILY 06/07/25 09/09/25 06/20/25 History omega 5-mum-bwy-fish oil 1,000 mg 1 cap PO DAILY 06/07/25 09/09/25 06/20/25 History (120 mg-180 mg) capsule (Fish Oil) Allergies Allergy/AdvReac Type Severity Reaction Status Date / Time adhesive tape AdvReac Mild RASH/RIPS Verified 09/09/25 14:47 THE SKIN OFF Review of Systems Review of Systems: All systems reviewed & are unremarkable except as noted in HPI and below PMFSH Past Medical History Medical History Weight loss Degenerative joint disease (DJD) of hip Contusion of bone Left knee pain Insomnia Hot flashes due to menopause Osteopenia Screening due Impingement of left shoulder Right shoulder pain History of nephrolithiasis Degenerative joint disease of knee Psoriatic arthritis Osteoarthritis Degenerative disc disease, lumbar Prediabetes Irritable bowel syndrome GERD (gastroesophageal reflux disease) Left shoulder pain Migraines Fibromyalgia Rheumatoid arthritis Hyperlipidemia (Unknown) HTN (hypertension) Surgical History Surgical History History of lithotripsy 09/16/2023 Hx of right knee surgery 2005 S/P cystoscopy 2014 S/P cystoscopy with ureteral stent placement Right ureteroscopy, laser lithotripsy, stone extraction, retrograde pyelogram, stent insertion 10/23/2019 S/P right knee arthroscopy 2019 History of removal of cyst R foot 2008 H/O elbow surgery right elbow 2002 Hx of sinus surgery 1997 H/O: hysterectomy 1995 History of section 1978, 1983, 1992 S/P left knee arthroscopy 1996 History of cholecystectomy 12/2017 Trigger finger, right ring finger Family History Family History Mother Acute myocardial infarction Cerebrovascular accident Hypertension Father Acute myocardial infarction History of blood clots Diabetes mellitus Hypertension Social History Social History Tobacco type: cigarettes Second hand tobacco smoke exposure: Yes Smoking end date: 10/31/06 Additional smoking assessment comments: 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 Alcohol intake: never Alcohol use details: VERY RARE Substance use: never Substance use type: does not use Do You Feel Safe in your Home?: Yes Lack of Transportation: No Lack of Food: Never True Current Housing: I Have Housing Concerned About Future Housing: No Difficulty Paying Gas/Electric Bills: No Difficulty Paying for Meds: No Currently Unemployed: No Education: High School Diploma/GED Difficulty w/ Childcare or Family Care: No Living arrangements: with family Occupation/Education: occupation Gender identity (if verbalized by the patient): Female Sexual Orientation (if Verbalized by the Patient): Straight or Heterosexual Spiritual care concerns: No Agree to blood products: Yes Exam Narrative: APPEARANCE: Uncomfortable. HEAD: normocephalic, atraumatic. EYES: PERRLA/EOMI, conjunctivae clear. NOSE: Normal no drainage EARS:TMS clear with good light reflex. THROAT: Pharynx clear, no exudate. NECK: Supple. No adenopathy, no masses. RESPIRATORY: Airway patent, respirations nonlabored. Clear to auscultation bilaterally, no rales, rhonchi, wheezing. CARDIOVASCULAR: Regular rate and rhythm without murmurs rubs or gallops. ABDOMINAL: Right lower quadrant tenderness to palpation MUSCULOSKELETAL: Moves all extremities. Strength/ROM intact, No edema, No calf tenderness. NEURO: Alert. Cranial nerves II through XII intact. Good gait. Good coordination SKIN: Warm, dry. Normal Color Course Vital Signs Vital signs: Vital Signs Temperature 98.6 F 09/09/25 14:43 Pulse Rate 128 H 09/09/25 14:43 Respiratory Rate 16 09/09/25 14:43 Blood Pressure 152/85 H 09/09/25 14:43 Pulse Oximetry 100 09/09/25 14:43 Oxygen Delivery Room Air 09/09/25 14:43 Temperature 98.2 F 09/09/25 18:45 Pulse Rate 107 H 09/09/25 19:00 Respiratory Rate 22 H 09/09/25 19:00 Blood Pressure 165/70 H 09/09/25 19:00 Pulse Oximetry 100 09/09/25 19:00 Oxygen Delivery Simple Face Mask 09/09/25 19:00 Oxygen Flow Rate 6 09/09/25 19:00 Medical Decision Making MDM Narrative Medical decision making narrative: 64-year-old female presents to the emergency department for evaluation after having an outpatient CT that showed acute appendicitis. Patient is afebrile but does have a leukocytosis of 15.4 hemoglobin of 13.6. INR is 1.1. Patient's kidney function is 0.88. Patient does have mild elevation of AST and ALT with normal T bili and normal alk-phos. Patient's blood type is O positive. Patient was treated with 1 L of lactated Ringer's, 4 mg of IV Zofran. 0.5 mg of IV Dilaudid. Case was discussed with surgery and they are attempting to see if patient can have surgery tonight. Patient did go to the or from emergency department. Differential Diagnosis Differential Diagnosis: Colitis, diverticulitis, appendicitis Vital Signs Vital Signs: Vital Signs Temperature 98.6 F 09/09/25 14:43 Pulse Rate 128 H 09/09/25 14:43 Respiratory Rate 16 09/09/25 14:43 Blood Pressure 152/85 H 09/09/25 14:43 Pulse Oximetry 100 09/09/25 14:43 Oxygen Delivery Room Air 09/09/25 14:43 Temperature 98.2 F 09/09/25 18:45 Pulse Rate 107 H 09/09/25 19:00 Respiratory Rate 22 H 09/09/25 19:00 Blood Pressure 165/70 H 09/09/25 19:00 Pulse Oximetry 100 09/09/25 19:00 Oxygen Delivery Simple Face Mask 09/09/25 19:00 Oxygen Flow Rate 6 09/09/25 19:00 Lab Data 09/09/25 14:55 09/09/25 14:55 Labs: Lab Results 09/09/25 Range/Units 14:55 WBC 15.4 H (4.5-10.0) K/mm3 RBC 4.73 (4.2-5.4) M/mm3 Hgb 13.6 (12.0-15.0) g/dL Hct 41.1 (37.0-47.0) % MCV 86.9 (80-100) fl MCH 28.8 (26-34) pg MCHC 33.1 (32-36) g/dl RDW 13.0 (11.5-14.5) % Plt Count 399 H (150-375) k/mm3 MPV 8.7 (7.4-10.4) fl Immature Gran % (Auto) 0.4 (0-0.5) % Neut % (Auto) 80.4 H (45.5-73.1) % Lymph % (Auto) 10.6 L (18.3-44.2) % [place] % (Auto) 7.8 (2.6-8.5) % Eos % (Auto) 0.5 (0-4.4) % Baso % (Auto) 0.3 (0.2-1.2) % Lymph # (Auto) 1.64 (0.9-3.2) K/mm3 [place] # (Auto) 1.2 H (0.1-0.6) K/mm3 Eos # (Auto) 0.1 (0-0.3) K/mm3 Baso # (Auto) 0.0 (0.0-0.1) K/mm3 Abs Immat Gran (auto) 0.06 H (0.00-0.031) K/mm3 Absolute Neuts (auto) 12.4 H (1.3-6.7) K/mm3 Absolute Nucleated RBC 0.000 (0.0-0.012) K/mm3 Nucleated RBC % 0.0 (0.0-0.2) % PT 14.4 (11.1-14.7) Seconds INR 1.1 APTT 31.7 (22.3-36.8) Seconds Sodium 134 L (137-145) mmol/L Potassium 3.8 (3.4-5.0) mmol/L Chloride 100 (98-107) mmol/L Carbon Dioxide 23 (22-30) mmol/L Anion Gap 11 (4-12) mmol/L BUN 12 (7-17) mg/dL Creatinine 0.88 (0.7-1.0) mg/dL Estim Creat Clear Calc 40 ml/min Estimated GFR > 60 (59 - ) Glucose 111 H (65-110) mg/dL Calcium 10.1 (8.4-10.2) mg/dL Total Bilirubin 0.9 (0.2-1.3) mg/dL AST 73 H (14-36) U/L ALT 56 H (6-35) U/L Alkaline Phosphatase 66 (38-126) U/L Total Protein 8.1 (6.3-8.2) g/dL Albumin 4.9 (3.5-5.1) g/dL Blood Type O Positive Antibody Screen Negative Discharge Plan Discharge Clinical Impression: Acute appendicitis Patient Disposition: Still a Patient Condition: Stable
--- OUTSIDE RECORDS SUMMARY | 2025-09-09 17:07 | XMS_ITS | Clinical Summary ---
Author Organization [facility] [address] [facility] Address [address] [place] [phone] Care Team Providers Care Aircraft Tool Maker Name Role Phone Ion Balderas MD Primary Care Provider [phone] Marcin Norton MD Unavailable [phone] Allergies Active Allergy Reactions Criticality Noted Date [...] 12/20/2024 Assessment & Plan (12/20/2024 12:25 PM SALES NEGOTIATOR): Follows with [facility]. Currently on Otezla 30mg BID with [...] examination. Assessment & Plan (12/20/2024 12:28 PM SALES NEGOTIATOR): 64-year-old female with PMHx of HTN, HLD, [...] Norton. Assessment & Plan (09/14/2024 12:28 PM SALES NEGOTIATOR): 63-year-old female with PMHx of HTN, HLD, [...] on file Legal Sex Female 4:24 AM SALES NEGOTIATOR Gender Identity Not on file Sexual Orientation Not on file Last Filed Vital Signs Vital Sign Reading Time Taken Comments Blood Pressure 122/74 12/20/2024 11:12 AM SALES NEGOTIATOR Pulse 80 12/20/2024 11:12 AM SALES NEGOTIATOR Temperature - - Respiratory Rate - - Oxygen Saturation 98% 12/20/2024 11:12 AM SALES NEGOTIATOR Inhaled Oxygen Concentration - - Weight 48.7 kg (107 lb 6.4 oz) 12/20/2024 11:12 AM SALES NEGOTIATOR Height 152.4 cm (5') 12/20/2024 11:12 AM SALES NEGOTIATOR Body Mass Index 20.98 12/20/2024 11:12 AM SALES NEGOTIATOR Plan of Treatment Health Maintenance Due Date [...] HEPATITIS PANEL, ACUTE Routine 09/14/2024 10:31 AM SALES NEGOTIATOR Polyarthralgia Fatigue, unspecified type from Last 3 Months or Most Recently Relevant to Health Maintenance Results * Hepatitis panel, acute Blood (09/14/2024 10:31 AM SALES NEGOTIATOR) Hep A IgM NON-REACTI VE NON-REACT MARITA [facility] Comment: For additional information, please refer to http://Sp[employer] Research/faq/IDV287 (This link is being provided for informational/ educational purposes only.) HepBsAg NON-REACTI VE NON-REACT MARITA [facility] Comment: For additional information, please refer to http://[employer]/faq/OTP625 (This link is being provided for informational/ educational purposes only.) Hep B core IgM NON-REACTI VE NON-REACT MARITA [facility] Comment: For additional information, please refer to http://[employer]/faq/RZD738 (This link is being provided for informational/ educational purposes only.) Hep C Ab NON-REACTI VE NON-REACT MARITA [facility] Comment: HCV antibody was non-reactive. There is no laboratory evidence of HCV infection. In most cases, no further action is required. However, if recent HCV exposure is suspected, a test for HCV RNA (test code 58947) is suggested. For additional information please refer to http://[employer]/faq/LKA10i4 (This link is being provided for informational/ educational purposes only.) Blood 09/14/2024 10:3 1 AM SALES NEGOTIATOR 09/14/2024 10:32 AM SALES NEGOTIATOR Jessica [facility] MICROBIOLOGY - NERAL ORDERABLES Final Result [facility] [id number] [address] [address] [phone] from Last 3 Months or Most Recently Relevant to Health Maintenance Insurance AETNA MEDICARE GOLD Care Teams Aircraft Tool Maker Relationship Specialty Start Date End Date Ion Balderas MD [address] [place] [id number] PCP - General 09/03/16 Marcin Norton MD [address] [place] [phone] Consulting Physician Rheumatology 08/07/24
[2025-09-09] MEDS: LACTATED RINGERS 1,000 ML 999 ML IV CONT (17:18)
[2025-09-09] MEDS: ONDANSETRON INJ 4 MG/2 ML VIAL IV PUSH (17:20)
[2025-09-09] MEDS: HYDROmorphone HCL INJ (*CRX) 1 MG/ML SYR 0.5 MG IV PUSH (17:20)
[2025-09-09] MEDS: PIPERACILLIN/TAZOBACTAM SOD 3.375 GM in SODIUM CHLORIDE 0.9% IV 50 ML 100 ML IVPB (17:22)
--- NOTE | 2025-09-09 17:47 | PM.IMHP ---
H&P: HPI History of Present Illness Date/Time: 09/09/25 17:47 Chief Complaint: Acute appendicitis Narrative: The patient is a 64-year-old female presenting to the emergency department complaining of severe right lower quadrant abdominal pain. The patient reports the pain started Tuesday and has steadily worsened since that time. The patient was seen by her primary care physician this morning and outpatient CT scan was consistent with acute appendicitis. She was told to come to the emergency department at that time. The patient reports associated anorexia and nausea. The patient denies any fevers or chills at home. The patient denies any previous similar episodes. Review of Systems Review of Systems: All systems reviewed & are unremarkable except as noted in HPI and below PMFSH Past Medical History Medical History Weight loss Degenerative joint disease (DJD) of hip Contusion of bone Left knee pain Insomnia Hot flashes due to menopause Osteopenia Screening due Impingement of left shoulder Right shoulder pain History of nephrolithiasis Degenerative joint disease of knee Psoriatic arthritis Osteoarthritis Degenerative disc disease, lumbar Prediabetes Irritable bowel syndrome GERD (gastroesophageal reflux disease) Left shoulder pain Migraines Fibromyalgia Rheumatoid arthritis Hyperlipidemia (Unknown) HTN (hypertension) Surgical History Surgical History History of lithotripsy 09/16/2023 Hx of right knee surgery 2005 S/P cystoscopy 2014 S/P cystoscopy with ureteral stent placement Right ureteroscopy, laser lithotripsy, stone extraction, retrograde pyelogram, stent insertion 10/23/2019 S/P right knee arthroscopy 2018 History of removal of cyst R foot 2008 H/O elbow surgery right elbow 2001 Hx of sinus surgery 1997 H/O: hysterectomy 1995 History of section 1978, 1983, 1992 S/P left knee arthroscopy 1995 History of cholecystectomy 12/2017 Trigger finger, right ring finger Family History Family History Mother Acute myocardial infarction Cerebrovascular accident Hypertension Father Acute myocardial infarction History of blood clots Diabetes mellitus Hypertension Social History Social History Tobacco type: cigarettes Second hand tobacco smoke exposure: Yes Smoking end date: 10/31/06 Additional smoking assessment comments: 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 Alcohol intake: never Alcohol use details: VERY RARE Substance use: never Substance use type: does not use Do You Feel Safe in your Home?: Yes Lack of Transportation: No Lack of Food: Never True Current Housing: I Have Housing Concerned About Future Housing: No Difficulty Paying Gas/Electric Bills: No Difficulty Paying for Meds: No Currently Unemployed: No Education: High School Diploma/GED Difficulty w/ Childcare or Family Care: No Living arrangements: with family Occupation/Education: occupation Gender identity (if verbalized by the patient): Female Sexual Orientation (if Verbalized by the Patient): Straight or Heterosexual Spiritual care concerns: No Agree to blood products: Yes Meds Home Medications and Allergies Home Medications ?Medication ?Instructions ?Recorded ?Confirmed ?Type apremilast 30 mg tablet (Otezla) 30 mg PO BID 08/13/24 09/09/25 History ergocalciferol (vitamin D2) 1,250 50,000 unit PO WEEKLY #12 caps 12/10/24 09/09/25 Rx mcg (50,000 unit) capsule (Vitamin D2) sumatriptan succinate 100 mg tablet See Rx Instructions PO .COMPLEX 12/10/24 09/09/25 Rx #14 tabs cyclobenzaprine 10 mg tablet See Rx Instructions .Route 02/27/25 09/09/25 Rx .COMPLEX #30 tabs rosuvastatin 5 mg tablet See Rx Instructions .Route 03/27/25 09/09/25 Rx .COMPLEX #90 tabs metoprolol succinate 25 mg 25 mg PO HS #90 tabs 05/30/25 09/09/25 Rx tablet,extended release 24 hr dicyclomine 10 mg capsule 10 mg PO TID PRN abdominal 05/31/25 09/09/25 Rx discomfort #30 caps oxybutynin chloride 5 mg tablet See Rx Instructions .Route 05/31/25 09/09/25 Rx .COMPLEX #180 tabs famotidine 20 mg tablet 20 mg PO DAILY 06/07/25 09/09/25 History magnesium 250 mg tablet 500 mg PO DAILY 06/07/25 09/09/25 History omega 2-qhp-lyk-fish oil 1,000 mg 1 cap PO DAILY 06/07/25 09/09/25 History (120 mg-180 mg) capsule (Fish Oil) meloxicam 15 mg tablet See Rx Instructions .Route 06/12/25 09/09/25 Rx .COMPLEX #90 tabs ondansetron 4 mg disintegrating 4 mg PO Q8H PRN nausea and 06/24/25 09/09/25 Rx tablet vomiting #60 tabs fenofibrate 160 mg tablet 160 mg PO HS #90 tabs 07/09/25 09/09/25 Rx fluconazole 150 mg tablet 150 mg PO .COMPLEX #2 tabs 07/11/25 07/30/25 Rx tramadol 200 mg tablet,extended 200 mg PO DAILY PRN pain #30 tabs 07/22/25 09/09/25 Rx release 24 hr zolpidem 5 mg tablet 5 mg PO QHS #30 tabs 07/23/25 09/09/25 Rx triamcinolone acetonide 0.5 % 1 applic topical DAILY #15 grams 07/30/25 09/09/25 Rx topical cream Allergies Allergy/AdvReac Type Severity Reaction Status Date / Time adhesive tape AdvReac Mild RASH/RIPS Verified 09/09/25 14:47 THE SKIN OFF Vital Signs Vital Signs - 24 hr 09/09/25 14:43 09/09/25 16:55 09/09/25 17:01 Temperature 37.0 C Pulse Rate 128 H 123 H 116 H Respiratory Rate 16 20 16 Blood Pressure 152/85 H 152/101 H 149/100 H Pulse Oximetry 100 100 100 Oxygen Delivery Room Air Room Air Exam Const: General: cooperative, no acute distress and uncomfortable HENMT: Head: normal to inspection, normocephalic and atraumatic Eyes: General: appearance normal, both eyes and all related structures Neck: Neck: normal visual inspection, full ROM and no lymphadenopathy Resp: Auscultation: clear to auscultation bilaterally Cardio: Rate: tachycardic Rhythm: regular rhythm GI: Inspection: normal to inspection and non-distended GI Palp: Yes abdominal tenderness, Yes Soft to palpation, Yes Tenderness to palpation present (GI) and Yes Guarding due to palpation present (GI) Other: Focal tenderness to palpation right lower quadrant with voluntary guarding Skin: General skin exam: normal color and no rashes or lesions noted Neuro: General: patient oriented x3 and CN's II-XI intact bilaterally Extrem: General: normal to inspection and full ROM H&P: Results Labs Labs: Short CBC 09/09/25 Range/Units 14:55 WBC 15.4 H (4.5-10.0) K/mm3 Hgb 13.6 (12.0-15.0) g/dL Hct 41.1 (37.0-47.0) % Plt Count 399 H (150-375) k/mm3 BMP 09/09/25 14:55 Sodium 134 L Potassium 3.8 Chloride 100 Carbon Dioxide 23 BUN 12 Creatinine 0.88 Glucose 111 H Calcium 10.1 Liver Function 09/09/25 Range/Units 14:55 Total Bilirubin 0.9 (0.2-1.3) mg/dL AST 73 H (14-36) U/L ALT 56 H (6-35) U/L Alkaline Phosphatase 66 (38-126) U/L Albumin 4.9 (3.5-5.1) g/dL Imaging CT scan - abdomen: My impression: Acute appendicitis with proximal fecalith Assessment and Plan Assessment and plan (1) Acute appendicitis: Code(s): K35.80 - Unspecified acute appendicitis Status: Acute Assessment and Plan: Will set up for emergent laparoscopic appendectomy, NPO, IV antibiotics
--- NOTE | 2025-09-09 17:51 | WPDHPUPDATE1 ---
History and Physical Update Update Date/Time: 09/09/25 17:51 History and Physical has been reviewed, including an updated exam of the patient. There are NO changes in the patient's condition. Risks, benefits, and alternatives have been discussed and questions answered. Patient agrees to proceed with procedure.
--- NOTE | 2025-09-09 17:54 | WPDANESEPPF ---
Anes - Initial Pre Proc Eval Procedure: Operation Date: 09/09/25 17:45 Proposed Procedures p Laparoscopic Appendectomy - Nancy Aquino MD Date/Time: 09/09/25 17:54 Surgeon: Nancy Aquino MD Pre Op Diagnosis: appendicitis Patient Data Age: 64 Gender: F Height: 1.52 m Weight: 45.9 kg Last Vital Signs Temp 37.0 C 09/09/25 14:43 Pulse 116 H 09/09/25 17:01 Resp 16 09/09/25 17:01 BP 149/100 H 09/09/25 17:01 Pulse Ox 100 09/09/25 17:01 O2 Del Method Room Air 09/09/25 16:55 Allergies Allergy/AdvReac Type Severity Reaction Status Date / Time adhesive tape AdvReac Mild RASH/RIPS Verified 09/09/25 14:47 THE SKIN OFF Home Medications ?Medication ?Instructions ?Recorded ?Confirmed ?Type apremilast 30 mg tablet (Otezla) 30 mg PO BID 08/13/24 09/09/25 History ergocalciferol (vitamin D2) 1,250 50,000 unit PO WEEKLY #12 caps 12/10/24 09/09/25 Rx mcg (50,000 unit) capsule (Vitamin D2) sumatriptan succinate 100 mg tablet See Rx Instructions PO .COMPLEX 12/10/24 09/09/25 Rx #14 tabs cyclobenzaprine 10 mg tablet See Rx Instructions .Route 02/27/25 09/09/25 Rx .COMPLEX #30 tabs rosuvastatin 5 mg tablet See Rx Instructions .Route 03/27/25 09/09/25 Rx .COMPLEX #90 tabs metoprolol succinate 25 mg 25 mg PO HS #90 tabs 05/30/25 09/09/25 Rx tablet,extended release 24 hr dicyclomine 10 mg capsule 10 mg PO TID PRN abdominal 05/31/25 09/09/25 Rx discomfort #30 caps oxybutynin chloride 5 mg tablet See Rx Instructions .Route 05/31/25 09/09/25 Rx .COMPLEX #180 tabs famotidine 20 mg tablet 20 mg PO DAILY 06/07/25 09/09/25 History magnesium 250 mg tablet 500 mg PO DAILY 06/07/25 09/09/25 History omega 6-idt-nxa-fish oil 1,000 mg 1 cap PO DAILY 06/07/25 09/09/25 History (120 mg-180 mg) capsule (Fish Oil) meloxicam 15 mg tablet See Rx Instructions .Route 06/12/25 09/09/25 Rx .COMPLEX #90 tabs ondansetron 4 mg disintegrating 4 mg PO Q8H PRN nausea and 06/24/25 09/09/25 Rx tablet vomiting #60 tabs fenofibrate 160 mg tablet 160 mg PO HS #90 tabs 07/09/25 09/09/25 Rx fluconazole 150 mg tablet 150 mg PO .COMPLEX #2 tabs 07/11/25 07/30/25 Rx tramadol 200 mg tablet,extended 200 mg PO DAILY PRN pain #30 tabs 07/22/25 09/09/25 Rx release 24 hr zolpidem 5 mg tablet 5 mg PO QHS #30 tabs 07/23/25 09/09/25 Rx triamcinolone acetonide 0.5 % 1 applic topical DAILY #15 grams 07/30/25 09/09/25 Rx topical cream Laboratory Tests 09/09/25 14:55 WBC 15.4 H K/mm3 (4.5-10.0) RBC 4.73 M/mm3 (4.2-5.4) Hgb 13.6 g/dL (12.0-15.0) Hct 41.1 % (37.0-47.0) MCV 86.9 fl (80-100) MCH 28.8 pg (26-34) MCHC 33.1 g/dl (32-36) RDW 13.0 % (11.5-14.5) Plt Count 399 H k/mm3 (150-375) MPV 8.7 fl (7.4-10.4) Immature Gran % (Auto) 0.4 % (0-0.5) Neut % (Auto) 80.4 H % (45.5-73.1) Lymph % (Auto) 10.6 L % (18.3-44.2) Jewell % (Auto) 7.8 % (2.6-8.5) Eos % (Auto) 0.5 % (0-4.4) Baso % (Auto) 0.3 % (0.2-1.2) Lymph # (Auto) 1.64 K/mm3 (0.9-3.2) Jewell # (Auto) 1.2 H K/mm3 (0.1-0.6) Eos # (Auto) 0.1 K/mm3 (0-0.3) Baso # (Auto) 0.0 K/mm3 (0.0-0.1) Abs Immat Gran (auto) 0.06 H K/mm3 (0.00-0.031) Absolute Neuts (auto) 12.4 H K/mm3 (1.3-6.7) Absolute Nucleated RBC 0.000 K/mm3 (0.0-0.012) Nucleated RBC % 0.0 % (0.0-0.2) PT 14.4 Seconds (11.1-14.7) INR 1.1 APTT 31.7 Seconds (22.3-36.8) Sodium 134 L mmol/L (137-145) Potassium 3.8 mmol/L (3.4-5.0) Chloride 100 mmol/L (98-107) Carbon Dioxide 23 mmol/L (22-30) Anion Gap 11 mmol/L (4-12) BUN 12 mg/dL (7-17) Creatinine 0.88 mg/dL (0.7-1.0) Estim Creat Clear Calc 40 ml/min Estimated GFR > 60 (59 - ) Glucose 111 H mg/dL (65-110) Calcium 10.1 mg/dL (8.4-10.2) Total Bilirubin 0.9 mg/dL (0.2-1.3) AST 73 H U/L (14-36) ALT 56 H U/L (6-35) Alkaline Phosphatase 66 U/L (38-126) Total Protein 8.1 g/dL (6.3-8.2) Albumin 4.9 g/dL (3.5-5.1) Blood Type O Positive Antibody Screen Negative Patient hx anesthesia problems: none Family hx anesthesia problems: none Results Review: All pre-operative results and documents have been reviewed as part of the pre-operative evaluation. [facility], [facility] Past Medical History Medical History Weight loss Degenerative joint disease (DJD) of hip Contusion of bone Left knee pain Insomnia Hot flashes due to menopause Osteopenia Screening due Impingement of left shoulder Right shoulder pain History of nephrolithiasis Degenerative joint disease of knee Psoriatic arthritis Osteoarthritis Degenerative disc disease, lumbar Prediabetes Irritable bowel syndrome GERD (gastroesophageal reflux disease) Left shoulder pain Migraines Fibromyalgia Rheumatoid arthritis Hyperlipidemia (Unknown) HTN (hypertension) Surgical History Surgical History History of lithotripsy 09/16/2023 Hx of right knee surgery 2006 S/P cystoscopy 2014 S/P cystoscopy with ureteral stent placement Right ureteroscopy, laser lithotripsy, stone extraction, retrograde pyelogram, stent insertion 10/23/2019 S/P right knee arthroscopy 2018 History of removal of cyst R foot 2008 H/O elbow surgery right elbow 2001 Hx of sinus surgery 1997 H/O: hysterectomy 1995 History of section 1978, 1983, 1992 S/P left knee arthroscopy 1995 History of cholecystectomy 12/2017 Trigger finger, right ring finger Family History Family History Mother Acute myocardial infarction Cerebrovascular accident Hypertension Father Acute myocardial infarction History of blood clots Diabetes mellitus Hypertension Social History Social History Tobacco type: cigarettes Second hand tobacco smoke exposure: Yes Smoking end date: 10/31/06 Additional smoking assessment comments: 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 Alcohol intake: never Alcohol use details: VERY RARE Substance use: never Substance use type: does not use Do You Feel Safe in your Home?: Yes Lack of Transportation: No Lack of Food: Never True Current Housing: I Have Housing Concerned About Future Housing: No Difficulty Paying Gas/Electric Bills: No Difficulty Paying for Meds: No Currently Unemployed: No Education: High School Diploma/GED Difficulty w/ Childcare or Family Care: No Living arrangements: with family Occupation/Education: occupation Gender identity (if verbalized by the patient): Female Sexual Orientation (if Verbalized by the Patient): Straight or Heterosexual Spiritual care concerns: No Agree to blood products: Yes Anes - Eval Final PreProcedure Day of Procedure 09/09/25 17:54 Patient weight: normal Heart: tachycardia Lungs: decreased breath sounds Airway: Mallampati scale class II Neurological: alert and oriented Last oral intake: >/= 8 hours ASA classification: III Emergent: yes Anesthetic plan: proceed Anesthesia type and monitoring: general ETT and standard monitoring Results Review: All pre-operative results and documents have been reviewed as part of the pre-operative evaluation. Informed Consent: The patient's anesthetic plan and its attendant risks and benefits were discussed with the patient/family/POA. Questions were solicited and answers provided to the satisfaction of the patient/family/POA.
--- NOTE | 2025-09-09 18:29 | S_PTH ---
PATIENT: Amy Matias LOC: [facility] U#:[id number] AGE/SX: 64/F ROOM: RE09/09/[address]: Nancy Aquino MD : 1960 BED: DIS: 09/09/2025 SPEC #: [id number] RECD: 09/10/25 07:26 STATUS: AREN RESeymour #: [id number] RUTHIE: 09/09/25 18:[address]: Nancy Aquino DEPT: [facility] Surgical RECD BY: Kit Kowalski ENTERED: 09/10/25 07:27 SP TYPE: Surgical OTHR DR: Vivian Cano PA-C Tissues: A - Appendix Procedures: Hematoxylin and Eosin Stain Gross and Microscopic Level 3
--- NOTE | 2025-09-09 18:38 | W.PM.PROC2 ---
Procedure Note - Detailed Date of Procedure 09/09/25 Pre-op Diagnosis Acute appendicitis Post-op Diagnosis Same Procedure Performed laparoscopic appendectomy Surgeon Nancy Aquino MD Anesthesia General and Local Indications 64-year-old female presenting to the emergency department with acute appendicitis Findings acute appendicitis no evidence of perforation Description of Procedure The patient was taken to the operating room and placed in the supine position. After adequate induction of general anesthesia, the patient was prepped and draped in the normal sterile fashion. A time-out was then done to verify the patient's identity, as well as the procedure being performed. I began by making a 5 mm incision in the infraumbilical region, through this a Veress needle was placed in the peritoneal cavity. CO2 gas was then insufflated and after adequate pneumoperitoneum was achieved the Veress needle was removed. Then placed a 5 mm Optiview trocar under direct visualization into the peritoneal cavity. I then insufflated through this trocar site and the endoscope was placed into the trocar. Under direct visualization, placed 2 further 5 mm suprapubic port as well as an additional 12 mm port in the left lower abdomen. At this point identified the cecum, I retracted the cecum both medially and superiorly allowing me to expose the appendix. The appendix was noted to be very dilated and inflamed. The appendix was noted to be very adherent to the right lateral sidewall as well as the ileum. I was able to bluntly dissect the appendix from these adhesions. I then was able to locate the base of the appendix with the cecum. I created a window with the [place] dissector between the appendix itself and the mesoappendix. I then transected the mesoappendix with a white vascular staple load. The Endo-JEMIMA was then reloaded with a blue staple load and I transected the base of the appendix. Once the specimen was completely detached, an endo-pouch was placed into the 12 mm port site and the specimen was removed through the endo-pouch. The appendiceal specimen will be sent to pathology for further review. I then copiously irrigated the right lower quadrant. Hemostasis was noted at both staple lines no other pathology was seen in this area. I then moved the camera to the suprapubic port to check our its port of entry. No iatrogenic injury or other pathology was noted in the upper abdomen. I then closed the 12 mm port site with a Deo code and 0 Vicryl suture under direct visualization. At this point, the abdomen was desufflated and all ports were removed. All port sites were closed with 4 Monocryl subcuticular suture. Dermabond was placed on all wounds. The patient tolerated the procedure well and was extubated in the operating room postop. He will be sent to the recovery room in stable condition. Estimated Blood Loss 5 Drains No Packing No Pathology Yes Complications No immediate complications Condition Stable Disposition PACU [facility] Billing Surgery - Charge Forward: Surgery Billing
[2025-09-09] MEDS: LACTATED RINGERS 1,000 ML 30 ML IV CONT (18:45)
[2025-09-09] MEDS: fentaNYL CITRATE INJ (*CRX) 100 MCG/2 ML VIAL 25 MCG IV PUSH ×2 (19:08→19:11)
[2025-09-09] MEDS: HYDROcodone/acetaminophen (*CRX) 5-325 MG TABLET 1 TAB PO (19:49)
== END 2025-09-09 20:19 | disposition home or self-care (01) ==
LOC: ANHED 17:05 → ANHSURGERY 17:13
PROVIDERS: Emergency Provider Emergency Medicine; Visit Provider Surgery
PROC: 0DTJ4ZZ Resection of Appendix, Percutaneous Endoscopic Approach (ICD-10-PCS; CPT 44970; principal; 2025-09-09 17:45)
DX: K35.32 Acute appendicitis with perforation, localized peritonitis, and gangrene, without abscess (principal); E78.5 Hyperlipidemia, unspecified; I10 Essential (primary) hypertension; R73.03 Prediabetes; K21.9 Gastro-esophageal reflux disease without esophagitis; K58.9 Irritable bowel syndrome, unspecified; M79.7 Fibromyalgia; G47.00 Insomnia, unspecified; M85.88 Other specified disorders of bone density and structure, other site; M51.369 Other intervertebral disc degeneration, lumbar region without mention of lumbar back pain or lower extremity pain; M06.9 Rheumatoid arthritis, unspecified; L40.50 Arthropathic psoriasis, unspecified; M16.10 Unilateral primary osteoarthritis, unspecified hip; M17.10 Unilateral primary osteoarthritis, unspecified knee; F17.210 Nicotine dependence, cigarettes, uncomplicated; Z79.891 Long term (current) use of opiate analgesic; Z98.890 Other specified postprocedural states; Z96.0 Presence of urogenital implants; Z90.49 Acquired absence of other specified parts of digestive tract; Z87.442 Personal history of urinary calculi; Z82.49 Family history of ischemic heart disease and other diseases of the circulatory system
CPT/HCPCS: 44970; 36415; 71046; 80053; 85025; 85610; 85730; 86850; 86900; 86901; 88304; 93005; 96374; 96375; 99285; A9270; J1171; J2003; J2250; J2405; J2543; J2704; J3010; J7120

== ENCOUNTER 2025-09-19 20:53 | Emergency (ER) | payer MEDICARE, SELFPAY ==
--- NOTE | ~2025-09-19 | CT_ITS ---
EXAM/PROCEDURE: CT abdomen pelvis w con HISTORY: post op vomiting, pain, chills COMPARISON: None available. TECHNIQUE: September 09, 2025 FINDINGS: Patient has undergone interval appendectomy with no free air or, abscess or pneumatosis. Trace amount of strandy changes and tiny amount of fluid in the lower right paracolic gutter within normal limits for postoperative findings. The bowel gas pattern is nonobstructive. Aorta appears stable. No hydroureteronephrosis. Cholecystectomy. Liver spleen adrenal glands pancreas and stomach appear stable. No bulky lymphadenopathy or masses seen. Lung bases are clear and heart size normal. Hysterectomy surgical changes. Degenerative changes throughout the lumbar spine and hips. [id number] scattered diverticuli but no gross acute diverticulitis. The stomach is unopacified but no gross acute process seen. IMPRESSION: Trace amount of free fluid in mild strandy changes in the right lower quadrant probably within normal limits for recent appendectomy. No abscess or free air. Note: Preliminary radiology report provided by [facility] rad radiologist. Reviewed, dictated and finalized at location A. SURE VESSEL INSPECTOR IMPRESSION: Trace amount of free fluid in mild strandy changes in the right lower quadrant probably within normal limits for recent appendectomy. No abscess or free air. Note: Preliminary radiology report provided by [facility] rad radiologist.
[2025-09-19 21:55] VITALS: BP 156/70; PULSE 102; RESP 20; TEMP 36.4; O2SAT 97
[2025-09-20 00:44] VITALS: BP 154/93; PULSE 90; RESP 18; O2SAT 99
[2025-09-20 00:47] LABS: Hematocrit 38.3 % (37.0-47.0); Hemoglobin 12.3 g/dL (12.0-15.0); Immature Granulocyte Percent A 0.9 % (0-0.5); Lymphocytes Absolute Auto 1.17 K/mm3 (0.9-3.2); Mean Corpuscular HGB Conc 32.1 g/dl (32-36); Mean Corpuscular Hemoglobin 28.6 pg (26-34); Mean Corpuscular Volume 89.1 fl (80-100); Nucleated Red Blood Cells Absolute Auto 0.000 K/mm3 (0.0-0.012); Nucleated Red Blood Cells Perc 0.0 % (0.0-0.2); Platelet Count Result 455 k/mm3 (150-375); Red Blood Count 4.30 M/mm3 (4.2-5.4); White Blood Count 8.7 K/mm3 (4.5-10.0)
[2025-09-20 00:50] LABS: Alanine Aminotransferase 23 U/L (6-35); Albumin Level 4.7 g/dL (3.5-5.1); Alkaline Phosphatase 79 U/L (38-126); Anion Gap 13 mmol/L (4-12); Aspartate Amino Transferase 34 U/L (14-36); Bilirubin,Total 0.6 mg/dL (0.2-1.3); Blood Urea Nitrogen 16 mg/dL (7-17); Calcium 10.0 mg/dL (8.4-10.2); Carbon Dioxide 21 mmol/L (22-30); Chloride 104 mmol/L (98-107); Estimated Glomerular Filt Rate > 60; Glucose 126 mg/dL (65-110); Potassium 4.1 mmol/L (3.4-5.0); Sodium 138 mmol/L (137-145); Total Protein 7.8 g/dL (6.3-8.2)
[2025-09-20 00:56] LABS: Add Urine Microscopic? YES; Appearance Urine Cloudy (Clear); Glucose Urine UA Negative (Negative); Leukocyte Esterase Ur Negative LEU/UL (Negative); Nitrate Urine Negative (Negative); Specific Grav Ur 1.031 (1.001-1.035)
[2025-09-20 01:00] VITALS: BP 137/70; PULSE 87; RESP 15; O2SAT 98
[2025-09-20 01:30] VITALS: BP 161/78; PULSE 93; RESP 20; O2SAT 97
[2025-09-20] MEDS: ONDANSETRON INJ 4 MG/2 ML VIAL IV PUSH (01:50)
--- NOTE | 2025-09-20 01:53 | ED.NAVMDI ---
HPI - Nausea/Vomiting/Diarrhea General Chief complaint: Nausea/Vomiting/Diarrhea Stated complaint: chills, vomiting Time Seen by Provider: 09/20/25 01:37 History of Present Illness HPI Narrative: 64-year-old female with history of hypertension and hyperlipidemia presenting to the emergency department with postoperative chills nausea and vomiting. Patient had appendectomy with General surgery here on the 10th of this month. She has been having some postoperative fullness occasional nausea occasional pain or left-sided at. She called her general surgeon who told her to go the emergency department for evaluation. Patient denies any traumatic injuries. No urinary complaints. States she feels full and dehydrated. Endorses some left-sided abdominal pain especially when she lays on her left side. Her port sites are clean and dry without any purulence or redness. Was otherwise able to manage her symptoms at home aside from the vomiting today. Took a COVID flu test which was negative. Related Data Home Medications ?Medication ?Instructions ?Recorded ?Confirmed ?Last Taken ?Type apremilast 30 mg tablet (Otezla) 30 mg PO BID 08/13/24 09/09/25 06/20/25 History famotidine 20 mg tablet 20 mg PO DAILY 06/07/25 09/09/25 06/20/25 History magnesium 250 mg tablet 500 mg PO DAILY 06/07/25 09/09/25 06/20/25 History omega 3-xif-pfg-fish oil 1,000 mg 1 cap PO DAILY 06/07/25 09/09/25 06/20/25 History (120 mg-180 mg) capsule (Fish Oil) Allergies Allergy/AdvReac Type Severity Reaction Status Date / Time adhesive tape AdvReac Mild RASH/RIPS Verified 09/19/25 20:58 THE SKIN OFF Review of Systems Review of Systems: As reviewed [facility] Past Medical History Medical History Weight loss Degenerative joint disease (DJD) of hip Contusion of bone Left knee pain Insomnia Hot flashes due to menopause Osteopenia Screening due Impingement of left shoulder Right shoulder pain History of nephrolithiasis Degenerative joint disease of knee Psoriatic arthritis Osteoarthritis Degenerative disc disease, lumbar Prediabetes Irritable bowel syndrome GERD (gastroesophageal reflux disease) Left shoulder pain Migraines Fibromyalgia Rheumatoid arthritis Hyperlipidemia (Unknown) HTN (hypertension) Surgical History Surgical History History of laparoscopic appendectomy laparoscopic appendectomy Dr Aquino 09/09/2025 History of lithotripsy 09/16/2023 Hx of right knee surgery 2005 S/P cystoscopy 2014 S/P cystoscopy with ureteral stent placement Right ureteroscopy, laser lithotripsy, stone extraction, retrograde pyelogram, stent insertion 10/23/2019 S/P right knee arthroscopy 2018 History of removal of cyst R foot 2008 H/O elbow surgery right elbow 2001 Hx of sinus surgery 1997 H/O: hysterectomy 1995 History of section 1978, 1983, 1992 S/P left knee arthroscopy 1995 History of cholecystectomy 12/2017 Trigger finger, right ring finger Family History Family History Mother Acute myocardial infarction Cerebrovascular accident Hypertension Father Acute myocardial infarction History of blood clots Diabetes mellitus Hypertension Social History Social History Smoking status: Never smoker Tobacco type: cigarettes Second hand tobacco smoke exposure: Yes Smoking end date: 10/31/06 Additional smoking assessment comments: 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 Alcohol intake: never Alcohol use details: VERY RARE Substance use: never Substance use type: does not use Do You Feel Safe in your Home?: Yes Lack of Transportation: No Lack of Food: Never True Current Housing: I Have Housing Concerned About Future Housing: No Difficulty Paying Gas/Electric Bills: No Difficulty Paying for Meds: No Currently Unemployed: No Education: High School Diploma/GED Difficulty w/ Childcare or Family Care: No Living arrangements: with family Occupation/Education: occupation Gender identity (if verbalized by the patient): Female Sexual Orientation (if Verbalized by the Patient): Straight or Heterosexual Spiritual care concerns: No Agree to blood products: Yes Exam Narrative: GENERAL: [Well-appearing, well-nourished, and in no acute distress.] HEAD: [Normocephalic, atraumatic.] EYES: [PERRLA and EOMI.] ENT: Nares clear, no rhinorrhea or epistaxis. Mucous membranes dry. NECK: Supple. CHEST: [Clear to auscultation. No respiratory distress.] HEART: [Regular rate and rhythm]. No murmur heard. [Normal peripheral pulses.] ABDOMEN: Soft and nondistended abdomen. Minimally tender in the left upper quadrant. Her incision sites are clean dry and intact. No gross rigidity or guarding. No peritonitis. EXTREMITIES: Normal range of motion. [No edema.] SKIN: Warm, dry, no rash. NEURO: [No focal deficits]. Alert and oriented [x3.] PSYCH: [Normal mood and affect.] Course Vital Signs Vital signs: Vital Signs Temperature 36.4 C 09/19/25 21:55 Pulse Rate 102 H 09/19/25 21:55 Respiratory Rate 20 09/19/25 21:55 Blood Pressure 156/70 H 09/19/25 21:55 Pulse Oximetry 97 09/19/25 21:55 Oxygen Delivery Room Air 09/19/25 21:55 Temperature 36.4 C 09/19/25 21:55 Pulse Rate 105 H 09/20/25 02:31 Respiratory Rate 25 H 09/20/25 02:31 Blood Pressure 141/70 H 09/20/25 02:31 Pulse Oximetry 100 09/20/25 02:31 Oxygen Delivery Room Air 09/19/25 21:55 MDM - Nausea/Vomiting/Diarrhea MDM Narrative Medical decision making narrative: 64-year-old female with history of hypertension and hyperlipidemia presenting to the emergency department with postoperative chills nausea and vomiting. Patient had appendectomy with General surgery here on the 10th of this month. She has been having some postoperative fullness occasional nausea occasional pain or left-sided at. She called her general surgeon who told her to go the emergency department for evaluation. Patient denies any traumatic injuries. No urinary complaints. States she feels full and dehydrated. Endorses some left-sided abdominal pain especially when she lays on her left side. Her port sites are clean and dry without any purulence or redness. Was otherwise able to manage her symptoms at home aside from the vomiting today. Took a COVID flu test which was negative. Soft and nondistended abdomen. Minimally tender in the left upper quadrant. Her incision sites are clean dry and intact. No gross rigidity or guarding. No peritonitis. Hemodynamically she is mildly tachycardic otherwise afebrile with no significant blood pressure concerns. No tachypnea. Symptoms consistent with potential postoperative infection or intra-abdominal complications such as abscess formation. Possibility of viral syndrome/COVID/flu/RSV given that she was recently in the hospital. Possibility of gastroenteritis or other intra-abdominal causes well. Broad workup underway. Given fluids and Zofran and a CT scan with contrast obtained. Urinalysis ordered. Viral swabs ordered. Laboratory studies showed no leukocytosis or anemia. Mildly elevated platelets but not significant above her previous baselines. Electrolytes are normal. Normal creatinine. Normal glucose. Negative lactic acid. Normal LFTs. Urinalysis with no signs of infection. CT scan shows no fluid collections or abscess. Status post appendectomy without any complications. No intra-abdominal process. Patient felt much better after the Zofran fluids. Ambulatory with a steady gait without any difficulty. No vomiting here in the ED. Will be given some Reglan at home for continued nausea control and safe for discharge home at this time with regular PCP follow-up. Symptoms likely secondary to viral syndrome but negative for COVID flu RSV. Medical Records Attestation: I reviewed the patient's medical records. Lab Data Attestation: I reviewed the patient's lab results. 09/20/25 00:33 09/20/25 00:33 Labs: Lab Results 09/20/25 09/20/25 09/20/25 Range/Units 00:33 00:44 02:07 WBC 8.7 (4.5-10.0) K/mm3 RBC 4.30 (4.2-5.4) M/mm3 Hgb 12.3 (12.0-15.0) g/dL Hct 38.3 (37.0-47.0) % MCV 89.1 (80-100) fl MCH 28.6 (26-34) pg MCHC 32.1 (32-36) g/dl RDW 13.1 (11.5-14.5) % Plt Count 455 H (150-375) k/mm3 MPV 8.9 (7.4-10.4) fl Immature Gran % (Auto) 0.9 H (0-0.5) % Neut % (Auto) 76.9 H (45.5-73.1) % Lymph % (Auto) 13.5 L (18.3-44.2) % Chambers % (Auto) 8.1 (2.6-8.5) % Eos % (Auto) 0.1 (0-4.4) % Baso % (Auto) 0.5 (0.2-1.2) % Lymph # (Auto) 1.17 (0.9-3.2) K/mm3 Chambers # (Auto) 0.7 H (0.1-0.6) K/mm3 Eos # (Auto) 0.0 (0-0.3) K/mm3 Baso # (Auto) 0.0 (0.0-0.1) K/mm3 Abs Immat Gran (auto) 0.08 H (0.00-0.031) K/mm3 Absolute Neuts (auto) 6.7 (1.3-6.7) K/mm3 Absolute Nucleated RBC 0.000 (0.0-0.012) K/mm3 Nucleated RBC % 0.0 (0.0-0.2) % Sodium 138 (137-145) mmol/L Potassium 4.1 (3.4-5.0) mmol/L Chloride 104 (98-107) mmol/L Carbon Dioxide 21 L (22-30) mmol/L Anion Gap 13 H (4-12) mmol/L BUN 16 (7-17) mg/dL Creatinine 0.81 (0.7-1.0) mg/dL Estim Creat Clear Calc Not Reportable Estimated GFR > 60 (59 - ) Glucose 126 H (65-110) mg/dL Lactic Acid 1.4 (0.7-2.0) mmol/L Calcium 10.0 (8.4-10.2) mg/dL Total Bilirubin 0.6 (0.2-1.3) mg/dL AST 34 (14-36) U/L ALT 23 (6-35) U/L Alkaline Phosphatase 79 (38-126) U/L Total Protein 7.8 (6.3-8.2) g/dL Albumin 4.7 (3.5-5.1) g/dL Urine Color Yellow (Yellow) Urine Appearance Cloudy H (Clear) Urine pH 5.5 (5.0-9.0) Ur Specific [place] 1.031 (1.001-1.035) Urine Protein Trace (Negative) mg/dL Urine Glucose (UA) Negative (Negative) mg/dL Urine Ketones 1+ H (Negative) mg/dL Ur Blood (Man) Negative (Negative) Urine Nitrate Negative (Negative) Urine Bilirubin Negative (Negative) Urine Urobilinogen 1.0 (<2.0) mg/dL Leukocyte Esterase Rfl Negative (Negative) SANDI/UL Urine RBC 3-5 H (0-2) /hpf Urine WBC 0-5 (0-3) /hpf Ur Squamous Epith Cells Few (Few) /hpf Urine Bacteria None seen /hpf Urine Casts 3-5 Influenza A (RT-PCR) Negative (Negative) Influenza B (RT-PCR) Negative (Negative) RSV (RT-PCR) Negative (Negative) SARS-CoV-2 RNA (RT-PCR) Negative (Negative) Imaging Data Attestation: I personally reviewed and interpreted this imaging study as follows: My impression: No acute process or postsurgical complication. Discharge Plan Discharge Clinical Impression: Acute viral syndrome, Nausea & vomiting, Status post appendectomy Patient Disposition: Home Condition: Stable Instructions: Antibiotic Form, Acute Nausea and Vomiting (ED), Viral Syndrome (ED) Additional Instructions: Laboratory studies are normal in reassuring. CT scan is normal without any signs of postsurgical fluid collections or abscess or intra-abdominal infection or complications. Symptoms consistent with possible viral syndrome. We have send you home with some Reglan which is a strong anti nausea medication. Maintain good oral hydration electrolyte solution such as Gatorade, Powerade, Pedialyte. Return with any emergent concerns for inability to tolerate oral intake. Follow-up with regular doctors. Patient Language: Yoruba Prescriptions: New metoclopramide HCl [Reglan] 5 mg tablet 5 mg PO Q8H PRN (Reason: nausea and vomiting) Qty: 10 0RF No Action Otezla 30 mg tablet 30 mg PO BID triamcinolone acetonide 0.5 % cream 1 applic topical DAILY Qty: 15 0RF omega 2-xkp-gmq-fish oil [Fish Oil] 1,000 (120-180) mg capsule 1 cap PO DAILY magnesium 250 mg tablet 500 mg PO DAILY famotidine 20 mg tablet 20 mg PO DAILY hydrocodone-acetaminophen 5-325 mg tablet 1 tablet PO Q6H PRN (Reason: pain) Qty: 20 0RF ergocalciferol (vitamin D2) [Vitamin D2] 1,250 mcg (50,000 unit) capsule 50,000 unit PO WEEKLY Qty: 12 3RF Rx Instructions: Takes Sundays sumatriptan succinate 100 mg tablet See Rx Instructions PO .COMPLEX Qty: 14 1RF Rx Instructions: take 1 tab at onset of headache; if no relief, may repeat 1 tab after at least 2 hrs; max = 2 tabs/24 hrs PO cyclobenzaprine 10 mg tablet See Rx Instructions .ROUTE .COMPLEX Qty: 30 5RF Dose Instruction: TAKE 1 TABLET BY MOUTH EVERY DAY AT BEDTIME NEEDED FOR 30 DAYS Rx Instructions: TAKE 1 TABLET BY MOUTH EVERY DAY AT BEDTIME NEEDED FOR 30 DAYS rosuvastatin 5 mg tablet See Rx Instructions .ROUTE .COMPLEX Qty: 90 1RF Dose Instruction: TAKE 1 TABLET ONCE DAILY Rx Instructions: TAKE 1 TABLET ONCE DAILY metoprolol succinate 25 mg tablet extended release 24 hr 25 mg PO HS Qty: 90 2RF dicyclomine 10 mg capsule 10 mg PO TID PRN (Reason: abdominal discomfort) Qty: 30 3RF oxybutynin chloride 5 mg tablet See Rx Instructions .ROUTE .COMPLEX Qty: 180 1RF Dose Instruction: TAKE 1 TABLET BY MOUTH TWICE A DAY Rx Instructions: TAKE 1 TABLET BY MOUTH TWICE A DAY meloxicam 15 mg tablet See Rx Instructions .ROUTE .COMPLEX Qty: 90 1RF Dose Instruction: TAKE 1 TABLET BY MOUTH EVERY DAY NEEDED Rx Instructions: TAKE 1 TABLET BY MOUTH EVERY DAY NEEDED ondansetron 4 mg tablet,disintegrating 4 mg PO Q8H PRN (Reason: nausea and vomiting) Qty: 60 1RF fenofibrate 160 mg tablet 160 mg PO HS Qty: 90 3RF fluconazole 150 mg tablet 150 mg PO .COMPLEX Qty: 2 0RF Rx Instructions: 150 mg orally Once. May repeat x 1 in week if needed; as a single dose tramadol 200 mg tablet extended release 24 hr 200 mg PO DAILY PRN (Reason: pain) Qty: 30 0RF zolpidem 5 mg tablet 5 mg PO QHS Qty: 30 2RF Rx Instructions: may repeat once if no response in 30-60 minutes Follow-up/Referrals: Vivian Cano PA-C [Primary Care Provider, Family Practice]
[2025-09-20 02:00] VITALS: BP 150/75; PULSE 110; RESP 16; O2SAT 100
[2025-09-20] MEDS: LACTATED RINGERS 1,000 ML 999 ML IV CONT ×2 (02:01)
--- OUTSIDE RECORDS SUMMARY | 2025-09-20 02:06 | XMS_ITS | Clinical Summary ---
Author Organization [facility] Address [address] [place] [address] Care Team Providers Care Escrow Officer Name Role Phone Ion Balderas MD Primary Care Provider [phone] Allergies Active Allergy Reactions Criticality Noted Date [...] vitamin D2, ergocalciferol, (VITAMIN D, ERGOCALCIFEROL, ) 07141 UNITS capsule Take 50,000 Units by mouth [...] - 07/19/2025 11:59 PM CDT Hospital Encounter [facility] Interventional Radiology [address] [facility] [place] [address] Britt Severino NP Discharge Disposition: Home or [...] Comments Blood Pressure 161/83 10/22/2019 4:18 PM CAMP NURSE Pulse 99 10/22/2019 4:18 PM CAMP NURSE Temperature 36.1 C (96.98 F) 10/22/2019 4:18 PM CAMP NURSE Respiratory Rate 20 10/22/2019 4:18 PM CAMP NURSE Oxygen Saturation 97% 10/22/2019 4:18 PM CAMP NURSE Inhaled Oxygen Concentration - - Weight 59.1 kg (130 lb 3.2 oz) 10/21/2019 4:33 AM CAMP NURSE Height 152.4 cm (5') 10/20/2019 7:53 PM CAMP NURSE Body Mass Index 25.43 10/20/2019 7:53 PM CAMP NURSE Plan of Treatment Health Maintenance Due Date [...] 10:44 AM Narrative 07/19/2025 10:46 AM CDT [address] [address] Examination: Fluoroscopic joint injection, left hip Exam [...] Procedure Note Philippe Elias MD - 07/19/2025 [facility] [address] [place], [place] [address] Examination: Fluoroscopic joint injection, left hip Exam [...] Elias MD, 07/19/2025 10:44 AM Britt Aparicio B[employer]ING[employer] SCHOOL PSYCHOLOGIST INTERVENTIONAL RADIOLOGY nal Result from Last 3 Months Insurance [employer] MEDICARE Advance Directives * Full Code (Latest Code Status on File) Date Activated Date Inactivated Comments 10/20/2019 8:03 PM 10/22/2019 8:16 PM Care Teams Escrow Officer Relationship Specialty Start Date End Date Ion Balderas MD [address] [place] [address] PCP - General FAMILY PRACTICE 10/20/19
--- OUTSIDE RECORDS SUMMARY | 2025-09-20 02:06 | XMS_ITS | Clinical Summary ---
Author Organization [facility] [address] [facility] Address [address] [place] [id number] Care Team Providers Care Application Support Administrator Name Role Phone Ion Balderas MD Primary Care Provider [phone] Marcin Norton MD Unavailable [phone] Allergies Active Allergy Reactions Criticality Noted Date [...] 12/20/2024 Assessment & Plan (12/20/2024 12:25 PM PAINTER [employer]): Follows with [facility]. Currently on Otezla 30mg BID [...] examination. Assessment & Plan (12/20/2024 12:28 PM PA[employer]): 64-year-old female with PMHx of HTN, HLD, [...] Norton. Assessment & Plan (09/14/2024 12:28 PM PA[employer]): 63-year-old female with PMHx of HTN, HLD, [...] on file Legal Sex Female 4:24 AM PAINTER [employer] Gender Identity Not on file Sexual Orientation Not on file Last Filed Vital Signs Vital Sign Reading Time Taken Comments Blood Pressure 122/74 12/20/2024 11:12 AM PAINTER [employer] Pulse 80 12/20/2024 11:12 AM PAINTER [employer] Temperature - - Respiratory Rate - - Oxygen Saturation 98% 12/20/2024 11:12 AM PAINTER [employer]EL Inhaled Oxygen Concentration - - Weight 48.7 kg (107 lb 6.4 oz) 12/20/2024 11:12 AM PA[employer]EL Height 152.4 cm (5') 12/20/2024 11:12 AM PAINTER [employer]EL Body Mass Index 20.98 12/20/2024 11:12 AM PAINTER [employer]EL Plan of Treatment Health Maintenance Due Date [...] HEPATITIS PANEL, ACUTE Routine 09/14/2024 10:31 AM PAINTER [employer]EL Polyarthralgia Fatigue, unspecified type from Last 3 Months or Most Recently Relevant to Health Maintenance Results * Hepatitis panel, acute Blood (09/14/2024 10:31 AM PA[employer]) Hep A IgM NON-REACTI VE NON-REACT MARITA [facility] Comment: For additional information, please refer to http://LoyalBlocks/faq/FBR826 (This link is being provided for informational/ educational purposes only.) HepBsAg NON-REACTI VE NON-REACT MARITA [facility] Comment: For additional information, please refer to http://LoyalBlocks/faq/OCJ777 (This link is being provided for informational/ educational purposes only.) Hep B core IgM NON-REACTI VE NON-REACT MARITA [facility] Comment: For additional information, please refer to http://LoyalBlocks/faq/XPX989 (This link is being provided for informational/ educational purposes only.) Hep C Ab NON-REACTI VE NON-REACT MARITA [facility] Comment: HCV antibody was non-reactive. There is no laboratory evidence of HCV infection. In most cases, no further action is required. However, if recent HCV exposure is suspected, a test for HCV RNA (test code 60721) is suggested. For additional information please refer to http://LoyalBlocks/faq/PLN35h4 (This link is being provided for informational/ educational purposes only.) Blood 09/14/2024 10:3 1 AM [employer]EL 09/14/2024 10:32 AM PAINTER [employer]EL Jessica [facility] MICROBIOLOGY - NERAL ORDERABLES Final Result [facility] [id number] [address] [phone] from Last 3 Months or Most Recently Relevant to Health Maintenance Insurance AETNA MEDICARE GOLD Care Teams Application Support Administrator Relationship Specialty Start Date End Date Ion Balderas MD [address] [place] [id number] PCP - General 09/03/16 Marcin Norton MD [address] [place] [id number] Consulting Physician Rheumatology 08/07/24
[2025-09-20 02:16] VITALS: BP 145/72; PULSE 102; RESP 12; O2SAT 100
[2025-09-20 02:31] VITALS: BP 141/70; PULSE 105; RESP 25; O2SAT 100
[2025-09-20 02:48] LABS: Influenza A QL RT-PCR Negative (Negative); Influenza B QL RT-PCR Negative (Negative); RSV RNA, RT-PCR Negative (Negative); SARS-CoV-2 RNA PCR Negative (Negative)
== END 2025-09-20 03:29 | disposition home or self-care (01) ==
PROVIDERS: Emergency Provider Student in an Organized Health Care Education/Training Program
DX: B34.9 Viral infection, unspecified (principal); R11.2 Nausea with vomiting, unspecified; Z98.890 Other specified postprocedural states; Z20.822 Contact with and (suspected) exposure to COVID-19; I10 Essential (primary) hypertension; E78.5 Hyperlipidemia, unspecified; R73.03 Prediabetes; M85.80 Other specified disorders of bone density and structure, unspecified site; M06.9 Rheumatoid arthritis, unspecified; M79.7 Fibromyalgia; M17.9 Osteoarthritis of knee, unspecified; L40.50 Arthropathic psoriasis, unspecified; K21.9 Gastro-esophageal reflux disease without esophagitis; K58.9 Irritable bowel syndrome, unspecified; Z87.442 Personal history of urinary calculi; Z87.891 Personal history of nicotine dependence; Z90.710 Acquired absence of both cervix and uterus; Z90.49 Acquired absence of other specified parts of digestive tract
CPT/HCPCS: 36415; 74177; 80053; 81001; 83605; 85025; 87637; 96361; 96374; 99284; J2405; J7120; Q9967

== ENCOUNTER 2025-10-17 14:22 | Outpatient (CLI) | payer MEDICARE, SELFPAY ==
--- NOTE | ~2025-10-17 | MM_ITS ---
EXAMINATION: MM screening peter BI w norma HISTORY: Screening TECHNIQUE: Craniocaudal and mediolateral oblique 3-D tomosynthesis images were obtained and synthetic 2-D images were generated. CAD analysis was submitted and interpreted. COMPARISON: Comparison to multiple prior studies sequentially, with oldest reviewed study dated 10/20/2016. BREAST PARENCHYMAL COMPOSITION: Dense: The breasts are heterogeneously dense, which may obscure small masses FINDINGS: There is no evidence of suspicious mass, calcification, or architectural distortion to suggest malignancy in either breast. There has been no suspicious interval change. IMPRESSION: 1. No mammographic evidence of malignancy. 2. Recommend routine screening mammography in one year. BI-RADS Category 1: Negative Reviewed, dictated and finalized at location [facility]. [facility]
--- OUTSIDE RECORDS SUMMARY | 2025-10-17 15:30 | XMS_ITS | Clinical Summary ---
Author Organization [facility] Address [address] [place] [address] Care Team Providers Care Desktop Specialist Name Role Phone Vivian Cano Primary Care Provider [phone] Allergies Active Allergy Reactions Criticality Noted Date [...] vitamin D2, ergocalciferol, (VITAMIN D, ERGOCALCIFEROL, ) 29332 UNITS capsule Take 50,000 Units by mouth [...] - 07/19/2025 11:59 PM CDT Hospital Encounter [facility] [place] [address] Britt Severino NP Discharge Disposition: Home or [...] Comments Blood Pressure 161/83 10/22/2019 4:18 PM SUMMER INTERN Pulse 99 10/22/2019 4:18 PM SUMMER INTERN Temperature 36.1 C (96.98 F) 10/22/2019 4:18 PM SUMMER INTERN Respiratory Rate 20 10/22/2019 4:18 PM SUMMER INTERN Oxygen Saturation 97% 10/22/2019 4:18 PM SUMMER INTERN Inhaled Oxygen Concentration - - Weight 59.1 kg (130 lb 3.2 oz) 10/21/2019 4:33 A M SUMMER INTERN Height 152.4 cm (5') 10/20/2019 7:53 PM SUMMER INTERN Body Mass Index 25.43 10/20/2019 7:53 PM SUMMER INTERN Plan of Treatment Upcoming Encounters Date Type Department Care Team (Late st Contact Info) Description 10/29/2025 3:00 PM SUMMER INTERN Appointment [facility] [id number] [place], [place] [id number] Vivian Cano PA [address] [place], [place] [address] Health Maintenance Due Date Last Done Comments [...] 10:44 AM Narrative 07/19/2025 10:46 AM CDT [address] [address] Examination: Fluoroscopic joint injection, left hip Exam [...] Procedure Note Philippe Elias MD - 07/19/2025 [facility] [address] [place], [place] [address] Examination: Fluoroscopic joint injection, left hip Exam [...] Elias MD, 07/19/2025 10:44 AM Britt Aparicio [employer] OPERATOR INTERVENTIONAL RADIOLOGY Fi nal Result from Last 3 Months Insurance AETNA MEDICARE Advance Directives * Full Code (Latest Code Status on File) Date Activated Date Inactivated Comments 10/20/2019 8:03 PM 10/22/2019 8:16 PM Care Teams Desktop Specialist Relationship Specialty Start Date End Date Vivian Cano PA [address] [place] [address] [place] [id number] PCP - General PHYSICIAN TELLER COORDINATOR 10/08/25
--- OUTSIDE RECORDS SUMMARY | 2025-10-17 15:30 | XMS_ITS | Clinical Summary ---
Author Organization [facility] [address] [facility] Address [address] [place] [id number] Care Team Providers Care First Press Operator Name Role Phone Ion Balderas MD Primary Care Provider [phone] Marcin Norton MD Unavailable [phone] Allergies Active Allergy Reactions Criticality Noted Date [...] 12/20/2024 Assessment & Plan (12/20/2024 12:25 PM MEDICAL ORDERLY): Follows with [facility]. Currently on Otezla 30mg BID with [...] examination. Assessment & Plan (12/20/2024 12:28 PM MEDICAL ORDERLY): 64-year-old female with PMHx of HTN, HLD, [...] Norton. Assessment & Plan (09/14/2024 12:28 PM MEDICAL ORDERLY): 63-year-old female with PMHx of HTN, HLD, [...] on file Legal Sex Female 4:24 AM MEDICAL ORDERLY Gender Identity Not on file Sexual Orientation Not on file Last Filed Vital Signs Vital Sign Reading Time Taken Comments Blood Pressure 122/74 12/20/2024 11:12 AM MEDICAL ORDERLY Pulse 80 12/20/2024 11:12 AM MEDICAL ORDERLY Temperature - - Respiratory Rate - - Oxygen Saturation 98% 12/20/2024 11:12 AM MEDICAL ORDERLY Inhaled Oxygen Concentration - - Weight 48.7 kg (107 lb 6.4 oz) 12/20/2024 11:12 AM MEDICAL ORDERLY Height 152.4 cm (5') 12/20/2024 11:12 AM MEDICAL ORDERLY Body Mass Index 20.98 12/20/2024 11:12 AM MEDICAL ORDERLY Plan of Treatment Health Maintenance Due Date [...] HEPATITIS PANEL, ACUTE Routine 09/14/2024 10:31 AM MEDICAL ORDERLY Polyarthralgia Fatigue, unspecified type from Last 3 Months or Most Recently Relevant to Health Maintenance Results * Hepatitis panel, acute Blood (09/14/2024 10:31 AM MEDICAL ORDERLY) Hep A IgM NON-REACTI VE NON-REACT MARITA [facility] Comment: For additional information, please refer to http://[employer]/faq/IIH539 (This link is being provided for informational/ educational purposes only.) HepBsAg NON-REACTI VE NON-REACT MARITA [facility] Comment: For additional information, please refer to http://[employer]/faq/CQI527 (This link is being provided for informational/ educational purposes only.) Hep B core IgM NON-REACTI VE NON-REACT MARITA [facility] Comment: For additional information, please refer to http://[employer]/faq/VNJ833 (This link is being provided for informational/ educational purposes only.) Hep C Ab NON-REACTI VE NON-REACT MARITA [facility] Comment: HCV antibody was non-reactive. There is no laboratory evidence of HCV infection. In most cases, no further action is required. However, if recent HCV exposure is suspected, a test for HCV RNA (test code 77707) is suggested. For additional information please refer to http://[employer]/faq/IAQ59s6 (This link is being provided for informational/ educational purposes only.) Blood 09/14/2024 10:3 1 AM MEDICAL ORDERLY 09/14/2024 10:32 AM MEDICAL ORDERLY [facility] NERAL ORDERABLES Final Result [facility] [id number] [address] [phone] from Last 3 Months or Most Recently Relevant to Health Maintenance Insurance [employer] MEDICARE GOLD Care Teams First Press Operator Relationship Specialty Start Date End Date Ion Balderas MD [address] [place] [id number] PCP - General 09/03/16 Marcin Norton MD [address] [place] [id number] Consulting Physician Rheumatology 08/07/24
== END 2025-10-17 14:23 | disposition home or self-care (01) ==
LOC: ANHFOHIMG 14:26
PROVIDERS: PCP Family Medicine
DX: Z12.31 Encounter for screening mammogram for malignant neoplasm of breast (principal)
CPT/HCPCS: 77063; 77067